=== PATIENT | female | born 1975 | race Caucasian/White ===

== ENCOUNTER 2019-06-24 14:19 | Outpatient (REF) | payer MEDICAID, SELFPAY ==
[2019-06-24 23:36] LABS: ALT 25 U/L (14-59); AST 18 U/L (15-37); Alkaline Phosphatase 102 U/L (46-116); Anion Gap 9.6 mmol/L (3-11); BUN 20 mg/dL (7-18); Bilirubin, Total 0.9 mg/dL (0.2-1.0); CO2 30.4 mmol/L (21.0-32.0); CREATININE 1.27 mg/dL (0.55-1.02); Calcium 10.9 mg/dL (8.5-10.1); Chloride 97 mmol/L (98-107); Glucose 92 mg/dL (74-106); HDL Cholesterol 45 mg/dL (40-60); Potassium 4.1 mmol/L (3.5-5.1); Sodium 137 mmol/L (136-145); Total Protein 8.7 g/dL (6.4-8.2); Triglyceride 186 mg/dL (<150)
[2019-06-24 23:39] LABS: Calculated LDL 520 mg/dL (<100); Cholesterol 602 mg/dL (<200); TSH 126.76 uIU/mL (0.36-3.74)
[2019-06-25 05:29] LABS: Vitamin D 25 Total 8.9 ng/ml (30-100)
== END 2019-06-24 14:39 ==
LOC: NCHCN 14:19
PROVIDERS: PCP Nurse Practitioner Family; Visit Provider Registered Nurse
DX: E78.5 Hyperlipidemia, unspecified (principal); E03.9 Hypothyroidism, unspecified; F32.9 Major depressive disorder, single episode, unspecified; E66.9 Obesity, unspecified
CPT/HCPCS: 80053; 80061; 82306; 84443

== ENCOUNTER 2019-09-08 09:13 | Outpatient (REF) | payer MEDICAID, SELFPAY ==
[2019-09-08 21:21] LABS: Calculated LDL 187 mg/dL (<100); Cholesterol 272 mg/dL (<200); HDL Cholesterol 38 mg/dL (40-60); TSH 12.92 uIU/mL (0.36-3.74); Triglyceride 237 mg/dL (<150)
[2019-09-08 21:40] LABS: FREE T4 0.98 ng/dL (0.76-1.46)
== END 2019-09-08 09:33 ==
LOC: NCHCN 09:13
PROVIDERS: PCP Nurse Practitioner Family; Visit Provider Registered Nurse
DX: E03.9 Hypothyroidism, unspecified (principal); E78.2 Mixed hyperlipidemia
CPT/HCPCS: 80061; 84439; 84443

== ENCOUNTER 2019-11-05 13:44 | Outpatient (REF) | payer MEDICAID, SELFPAY ==
[2019-11-05 21:25] LABS: TSH 0.05 uIU/mL (0.36-3.74)
== END 2019-11-05 14:04 ==
LOC: NCHCN 13:44
PROVIDERS: PCP Nurse Practitioner Family; Visit Provider Registered Nurse
DX: E03.9 Hypothyroidism, unspecified (principal)
CPT/HCPCS: 84443

== ENCOUNTER 2020-01-01 11:04 | Outpatient (REF) | payer MEDICAID, SELFPAY ==
[2020-01-01 20:00] LABS: TSH 0.01 uIU/mL (0.36-3.74)
== END 2020-01-01 11:24 ==
LOC: NCHCN 11:04
PROVIDERS: PCP Registered Nurse; Visit Provider Registered Nurse
DX: E03.9 Hypothyroidism, unspecified (principal); E78.2 Mixed hyperlipidemia; R00.2 Palpitations; J45.40 Moderate persistent asthma, uncomplicated; I10 Essential (primary) hypertension
CPT/HCPCS: 84443

== ENCOUNTER 2020-04-06 19:15 | Outpatient (REF) | payer MEDICAID, SELFPAY ==
[2020-04-06 22:20] LABS: TSH (W/Ref FT4) 0.13 uIU/mL (0.36-3.74)
[2020-04-06 22:39] LABS: FREE T4 1.39 ng/dL (0.76-1.46)
== END 2020-04-06 19:35 ==
LOC: NCHCN 19:15
PROVIDERS: PCP Registered Nurse; Visit Provider Registered Nurse
DX: E03.9 Hypothyroidism, unspecified (principal)
CPT/HCPCS: 84439; 84443

== ENCOUNTER 2020-11-10 10:05 | Outpatient (REF) | payer MEDICAID, SELFPAY ==
[2020-11-10 16:49] LABS: Anion Gap 11.1 mmol/L (3-11); BUN 13 mg/dL (7-18); CO2 27.9 mmol/L (21.0-32.0); CREATININE 0.9 mg/dL (0.55-1.02); Calcium 9.3 mg/dL (8.5-10.1); Calculated LDL 82 mg/dL (<100); Chloride 104 mmol/L (98-107); Cholesterol 150 mg/dL (<200); Glucose 99 mg/dL (74-106); HDL Cholesterol 42 mg/dL (40-60); Potassium 4.1 mmol/L (3.5-5.1); Sodium 143 mmol/L (136-145); Triglyceride 131 mg/dL (<150)
[2020-11-10 16:50] LABS: TSH (W/Ref FT4) 0.01 uIU/mL (0.36-3.74)
[2020-11-10 17:11] LABS: FREE T4 1.66 ng/dL (0.76-1.46)
== END 2020-11-10 10:06 | disposition home or self-care (01) ==
LOC: NCHCN 10:05
PROVIDERS: PCP Registered Nurse; Visit Provider Registered Nurse
DX: I10 Essential (primary) hypertension (principal); E78.2 Mixed hyperlipidemia; E03.9 Hypothyroidism, unspecified
CPT/HCPCS: 80048; 80061; 84439; 84443

== ENCOUNTER 2021-01-12 09:27 | Outpatient (REF) | payer MEDICAID, SELFPAY ==
[2021-01-12 21:30] LABS: TSH (W/Ref FT4) 0.12 uIU/mL (0.36-3.74)
[2021-01-12 21:50] LABS: FREE T4 1.28 ng/dL (0.76-1.46)
== END 2021-01-12 09:28 | disposition home or self-care (01) ==
LOC: NCHCN 09:27
PROVIDERS: PCP Registered Nurse; Visit Provider Registered Nurse
DX: E03.9 Hypothyroidism, unspecified (principal)
CPT/HCPCS: 84439; 84443

== ENCOUNTER 2021-04-25 08:48 | Outpatient (REF) | payer MEDICAID, SELFPAY ==
[2021-04-25 15:13] LABS: TSH 1.44 uIU/mL (0.36-3.74)
== END 2021-04-25 08:49 | disposition home or self-care (01) ==
LOC: NCHCN 08:48
PROVIDERS: PCP Registered Nurse; Visit Provider Registered Nurse
DX: E03.9 Hypothyroidism, unspecified (principal)
CPT/HCPCS: 84443

== ENCOUNTER 2021-09-27 16:01 | Outpatient (REF) | payer MEDICAID, SELFPAY ==
[2021-09-27 17:26] LABS: Hemoglobin A1C 5.8 % (<5.7)
[2021-09-27 17:39] LABS: Anion Gap 13.2 mmol/L (3-11); BUN 25 mg/dL (7-18); CO2 26.8 mmol/L (21.0-32.0); CREATININE 1.3 mg/dL (0.55-1.02); Calcium 9.6 mg/dL (8.5-10.1); Calculated LDL 282 mg/dL (<100); Chloride 99 mmol/L (98-107); Cholesterol 369 mg/dL (<200); Glucose 84 mg/dL (74-106); HDL Cholesterol 46 mg/dL (40-60); Sodium 139 mmol/L (136-145); Triglyceride 206 mg/dL (<150)
== END 2021-09-27 16:02 | disposition home or self-care (01) ==
LOC: NCHCN 16:01
PROVIDERS: PCP Registered Nurse; Visit Provider Registered Nurse
DX: I10 Essential (primary) hypertension (principal); E03.9 Hypothyroidism, unspecified; E78.2 Mixed hyperlipidemia; R73.09 Other abnormal glucose; Z83.3 Family history of diabetes mellitus
CPT/HCPCS: 80048; 80061; 83036; 84439; 84443

== ENCOUNTER 2021-10-13 17:07 | Outpatient (REF) | payer MEDICAID, SELFPAY ==
--- OUTSIDE RECORDS SUMMARY | 2021-10-13 17:09 | XMS_ITS | CCD ---
:1975 Author Care Team Providers Name Role Phone ROCIO VERDUGO Attending Physician Unavailable ROCIO VERDUGO Rounding (Secondary) Physician Unavailab le Vital Signs Unknown or Not Available. Allergies Allergy Code Allergy Type Reaction Status No Known Allergies {Clinical monitoring 0 Drug allergy Active unavailable} Procedures Unknown or Not Available. History of Immunizations Unknown or Not Available. Problems Unknown or Not Available. Results Unknown or Not Available. Active Medications Unknown or Not Available. Medications Administered During Visit Unknown or Not Available. Encounters Encounter Diagnosis Diagnosis Code Start Date Insomnia, unspecified [id number] 07/05/2021 Social History Smoking Status Code Start Date End Date Former smoker [id number] 04/22/1994 04/22/2008 Patient Decision Aids Unknown or Not Available. Discharge Instructions You were admitted to [facility] on 07/05/2021 13:56 with a principal diagnosis of Insomnia, unspecified You were discharged from [facility] on 07/05/2021 13:56 Should you have any questions prior to d ischarge, please contact a member of your healthcare team. If you have left the ho spital and have any questions, please contact your primary care physician. Chief Complaint and Reason For Visit Unknown or Not Available. Function Status Unknown or Not Available. Plan of Care Unknown or Not Available. Referral/Transition of Care Unknown or Not Available.
--- OUTSIDE RECORDS SUMMARY | 2021-10-13 17:10 | XMS_ITS | Encounter Summary ---
:1975 Author Organization [facility] [place] [address] Care Team Providers Name Role Phone Ciarra Noriega APRN Primary Care Provider [phone] Encounter Details Date Type Department Care Team Description 01/24/2017 Telephone Endocrinology at [facility] [place] [address] Social History Tobacco Use Types Packs/Day Years Used Date Never Smoker Sex Assigned at Date Recorded Not on file documented as of this encounter Miscellaneous Notes Telephone Encounter - Katelynn Carrillo LPN - 01/25/2017 9:50 AM EDT Images from the original note were not included. Breana Echeverria?? Female, 41 y.o., 1975 Weight: 78.5 kg (173 lb) Home: PCP: Ciarra Noriega APRN myD-H: Code Exp Next Appt: None ?? Message Received: Today ? Robby Salazar, DO Katelynn Carrillo LPN ? Caller: Unspecified (Yesterday, ??3:55 PM) ? Nataly is not in the office today. I have asked her staff to fax patients most recent TSH as I suspect that is what the inquiry is regarding. ? Previous Messages Telephone Encounter - Katelynn Carrillo LPN - 01/24/2017 3:55 PM EDT Nataly Dahl GROUP DIRECTOR EXPERIENCE at [facility] is asking for a call back regarding labs on this patient [phone] documented in this encounter Plan of Treatment Not on filedocumented as of this encounter Visit Diagnoses Not on filedocumented in this encounter Care Teams Firepot Operator And Tender Relationship Specialty Start Date End Date Ciarra Noriega APRN PCP - General Family Medicine 06/28/16 10/03/[address] [place] [address] documented as of this encounter
--- OUTSIDE RECORDS SUMMARY | 2021-10-13 17:10 | XMS_ITS | Encounter Summary ---
:1975 Author Organization [facility] [place] [address] Care Team Providers Name Role Phone Ciarra Noriega TIME BROKER Primary Care Provider [phone] Reason for Visit Consultation (Routine) - Closed Specialty Diagnoses / Procedures Referred By Contact Refer red To Contact Endocrinology Diagnoses Hypothyroidism-difficulty maintaining appropriate range Ciarra Noriega, [facility] Endocrinology 3b TIME BROKER [address] [address] [place] [address] Referral ID Status Reason Start Date Expiration Date Visits V isits Requested Authorized [id number] Closed Consult, 06/28/2016 06/28/2017 1 [facility] Encounter Details Date Type Department Care Team Description 08/01/2016 Office Visit Endocrinology at [facility] Robby Ken DO [facility] [place] [address] Hypothyroidism, [facility] Karli Juarez MD [facility] [place] [address] [place] [address] Social History Tobacco Use Types Packs/Day Years Used Date Never Smoker Sex Assigned at Date Recorded Not on file documented as of this encounter Last Filed Vital Signs Vital Sign Reading Time Taken Comments Blood Pressure 117/71 08/01/2016 2:57 PM EDT Pulse 89 08/01/2016 2:57 PM EDT Temperature - - Respiratory Rate - - Oxygen Saturation - - Inhaled Oxygen Concentration - - Weight 78.5 kg (173 lb) 08/01/2016 2:57 PM EDT Height 154.9 cm (5' 1) 08/01/2016 2:57 PM EDT Body Mass Index 32.69 08/01/2016 2:57 PM EDT documented in this encounter Patient Instructions Patient InstructionsKarli Juarez MD - 08/01/2016 3:00 PM EDT Will check your thyroid labs today and get back to you with results documented in this encounter Progress Notes Karli Juarez MD - 08/01/2016 3:00 PM EDT Endocrinology Consultation Date of Visit: 08/01/16 Patient: Name: Teresa Alvarez : 1975 Tersea Alvarez was seen in consultation in the Endocrine clinic at the request of Dr. iCarra Noriega, BRIANNA for: hypothyroidism. Patient's previous record as are the lab results are reviewed. HISTORY OF PRESENT ILLNESS: Teresa Alvarez is a very pleasant 40 y.o. yo female who presents for evaluation of hypothyroidism No family history of thyroid problem that patient is aware of. No previous head and neck irradiationand does not take other supplements or medications that can cause low thyroid. Never noticed goiter,neck pain or difficulty swallowing or voice changes. She has had multiple dose adjustments over the pastyear for fluctuating TSH levels as below Recent labs: 06/28/2016 TSH- 74 FT4- 0.66 12/2015 TSH 0.12 08/2015 TSH-31 She reports being on levothyroxine 200 mcg for 6 months and was recently upped to 250 mcg levothyroxine since 1 month. She states she is extremely compliant, having missed only 2 doses. Does not take pill with any othermeds. No celiac or gluten intolerance. Is Lactose intolerant. Diagnosed with HLD and hypothyroid 5 years ago. No FH thyroid disease Fatigue - always Weight gain - 20 lbs unintentional weight gain over 6 mo Intolerance to cold - yes Dry skin - no constipation - no Menstrual irregularities - TH + BSO for DUB and ovarian cysts b/w [id number] Not on HRT. Had psychosis on OCPs after 3 mo Muscle and joint pain - no Sleep disturbances - Trouble sleepinng Forgetfulness - no Globus sensation - no Difficulty swallowing - no Difficulty breathing - no Hoarseness or voice change - No REVIEW OF SYSTEMS: as per HPI, all other systems reviewed and negative Patient Active Problem List Diagnosis ??? Hypothyroidism, acquired, autoimmune ??? Early menopause Social History Social History ??? Marital status: N/A Spouse name: N/A ??? Number of children: N/A ??? Years of education: N/A Social History Main Topics ??? Smoking status: Not on file ??? Smokeless tobacco: Not on file ??? Alcohol use Not on file ??? Drug use: Not on file ??? Sexual activity: Not on file Other Topics Concern ??? Not on file Social History Narrative FH + DM, CAD PHYSICAL EXAM: BP 117/71 Pulse 89 Ht 154.9 cm (5' 1) Wt 78.5 kg (173 lb) BMI 32.69 kg/m2 GENERAL: Well nourished, well hydrated, in no distress, oriented x 3 EYES: no thyroid eye signs, SAHARA, Fundi normal, cornea normal NECK: supple, no palpable nodule or goiter, no bruit, no tenderness, no adenopathies CVS: S1 S2 heard, rhythm regular RS: clear breath sounds bilateral ABD: soft, BS heard, no organomegaly EXTREMITIES: No clubbing, no edema, no cyanosis, normal nails NEURO: normal strength, no tremor, normal reflexes Labs Results for TERESA ALVAREZ ( ) as of 08/02/2016 10:05 Ref. 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 Patient has had rapid reduction in TSH from 74 to 0.31 with a big loading dose of 250 mcg over the past month. Her weight based dosing works out closer to 125 mcg. Would favor reducing from 250 mcg to 175 mcg and repeating her TSH in 8 weeks through her PCP. Patient went through menopause in her early 30's. She is at higher risk of osteoporosis as she couldn't tolerate estrogen replacement therapy. She will need to continue calcium supplements and have herVit D status evaluated by her PCP to determine if she needs supplementation. She may consider f/u with OB to determine if she may need some estrogen replacement and a DEXA scan should be conducted by PCP in the future. I called and updated the patient who verbalized understanding and agreed with the plan PLAN: 1. Medication: Patient will start taking levothyroxine 150 mcg qd on an empty stomach at least 1/2 hbefore breakfast and separate from iron, calcium or multivitamin-multimineral supplement to ensure full absorption of thyroid medication. Patient was advised of proper dosage, how to take the medication properly, precautions, and potential complication of the medication prescribed. Patient will continue all other medications, healthy diet and execise regularly. 2. To eat low fat/controlled carb and healthy diet as well as regular exercise to keep weight down 3. Lab: check lab in 10 weeks for TSH by PCP 4. f/u: with PCP and to please contact is with questions 5. Patient info on hypothyroidism was given and explained in details today We have reviewed our plan outlined above with the patient, and patient verbalized understanding. Allquestions were answered and most of the time was spent on counseling about thyroid conditions, medications adjustment, including pros and cons of starting medication, the diagnostic and therapeutic decisions, and coordination of care. Thank you for allowing me to participate in the care of this very pleasant patient. This consult was discussed with Dr Salazar of Endocrinology Karli Juarez MD Endocrine Fellow [phone] Robby Salazar DO - 08/01/2016 3:00 PM EDT I have seen the patient and reviewed Dr juarez's history and I agree with the details as written. The assessment and plan were formulated in discussion with me and I agree with them as documented. Robby Salazar DO, MS Chapter Relations Administratorsection cutter Section of Endocrinology [facility] documented in this encounter Plan of Treatment Not on filedocumented as of this encounter Procedures Procedure Name Priority Date/Time Associated Diagnosis Comme nts TSH Routine 08/01/2016 3:52 PM Hypothyroidism, Result s for this EDT unspecified type procedure a re in the results section. documented in this encounter Results TSH (08/01/2016 3:52 PM EDT) P athologist Signature TSH 0.31 0.27 - 4.20 SUMANTH PAN mcIU/mL [facility] Specimen Anatomical Collection Method Collection Time Receive d Time (Source) Location / / Volume Laterality Blood specimen 08/01/2016 3:52 PM 017 4:00 (specimen) EDT PM EDT Resulting Agency Comment Spec In Lab Robby Salazar DO CHEMISTRY ORDERABLES Performing Organization Address City/State/ZIP Code Phon e Number [place] [phone] documented in this encounter Visit Diagnoses Diagnosis Hypothyroidism, unspecified type documented in this encounter Care Teams Matching Machine Operator Relationship Specialty Start Date End Date Ciarra Noriega APRN PCP - General Family Medicine 06/28/16 10/03/[address] [place] [address] documented as of this encounter
--- OUTSIDE RECORDS SUMMARY | 2021-10-13 17:10 | XMS_ITS | Encounter Summary ---
:1975 Author Organization [facility] Address [address] [place] [address] Care Team Providers Name Role Phone Ciarra Noriega SEMICONDUCTORS WAFER BREAKER Primary Care Provider [phone] Encounter Details Date Type Department Care Team Description 03/30/2020 Lab Requisition [facility] Outr Resulting Lab, Pathology & Laboratory Provider [facility] [address] [place] [address] Social History Tobacco Use Types Packs/Day Years Used Date Former Smoker Smokeless Tobacco: Never Used Alcohol Use Standard Drinks/Week Comments No 0 (1 standard drink = 0.6 oz pure alcoho l) Sex Assigned at Date Recorded Not on file documented as of this encounter Plan of Treatment Not on filedocumented as of this encounter Procedures Procedure Name Priority Date/Time Associated Diagnosis Comme nts IGE Routine 03/30/2020 11:09 EST Results for this procedure are i n the results section . documented in this encounter Results IGE (03/30/2020 11:09 EST) Pathologist Sig nature IgE 11 <158 IU/mL [facility] Specimen Blood - Venous blood (substance) Performing Organization Address City/State/ZIP Code Phon e Number [facility] [address] [place] [address] SERVICES documented in this encounter Visit Diagnoses Not on filedocumented in this encounter Care Teams Preforming Machine Operator Relationship Specialty Start Date End Date Ciarra Noriega, SEMICONDUCTORS WAFER BREAKER PCP - General 03/28/15 documented as of this encounter
--- OUTSIDE RECORDS SUMMARY | 2021-10-13 17:10 | XMS_ITS | Encounter Summary ---
:1975 Author Organization [facility] Address [address] [place] [address] Care Team Providers Name Role Phone Ciarra Noriega NP Primary Care Provider [phone] Encounter Details Date Type Department Care Team Description 03/30/2015 Abstract [facility] Charles Loja MD TREVOR (acute kidney Nephrology - S 1 [facility] injury) ( [facility]) [facility] (Primary Dx) [address] [facility] [address] [place] [address] [place] [phone] (Wo rk) Social History Tobacco Use Types Packs/Day Years Used Date Former Smoker Smokeless Tobacco: Never Used Alcohol Use Standard Drinks/Week Comments No 0 (1 standard drink = 0.6 oz pure alcoho l) Sex Assigned at Date Recorded Not on file documented as of this encounter Plan of Treatment Not on filedocumented as of this encounter Procedures Procedure Name Priority Date/Time Associated Diagnosis Comme nts URINALYSIS WITH Routine 03/29/2015 TREVOR (acute kidney Results for this MICROSCOPIC IF POSITIVE injury) ([facility]) procedure are in the results section . documented in this encounter Results URINALYSIS WITH REFLEX MICROSCOPIC (03/29/2015) Pathologist Sig nature Color UA, External yellow [facility] Clarity UA, External clear [facility] Glucose UA, External neg [facility] Bilirubin UA, External neg [facility] Ketones UA, External neg [facility] Specific [place] UA, 1.010 [facility] Blood UA, External trace [facility] pH UA, External 6.5 [facility] Protein UA, External neg [facility] Urobilinogen UA, External 0.2 [facility] Nitrite UA, External neg [facility] Leukocyte Esterase UA, neg [facility] Specimen Urine (substance) Performing Organization Address City/State/ZIP Code Phon e Number [facility] [address] LAB documented in this encounter Visit Diagnoses Diagnosis TREVOR (acute kidney injury) ([facility]) ([facility] ) - Primary Acute kidney failure, unspecified documented in this encounter Care Teams Mini Lab Operator Relationship Specialty Start Date End Date Ciarra Noriega ENTRY LEVEL SOFTWARE ENGINEER PCP - General 03/28/15 documented as of this encounter
--- OUTSIDE RECORDS SUMMARY | 2021-10-13 17:10 | XMS_ITS | Encounter Summary ---
:1975 Author Organization [facility] [place] [address] Care Team Providers Name Role Phone Ciarra Noriega APRN Primary Care Provider [phone] Reason for Visit Reason Onset Date Comments Medication Refill 09/28/2016 Encounter Details Date Type Department Care Team Description 09/28/2016 Refill Endocrinology at [facility] Karli Scruggs MD Hypothyroidism, One [facility] [place] [address] ENDOCRINOLOGY DE PT [place], [place] [address] (Wo rk) Social History Tobacco Use Types Packs/Day Years Used Date Never Smoker Sex Assigned at Date Recorded Not on file documented as of this encounter Miscellaneous Notes Telephone Encounter - Katelynn Carrillo LPN - 09/28/2016 9:34 AM EDT Balta lazcano in [place] Medicaid is requiring a 90 day Rx of Lt4 documented in this encounter Plan of Treatment Not on filedocumented as of this encounter Visit Diagnoses Diagnosis Hypothyroidism, unspecified type documented in this encounter Care Teams Canine Deputy Relationship Specialty Start Date End Date Ciarra Noriega APRN PCP - General Family Medicine 06/28/16 10/03/17 [address] [place] [address] documented as of this encounter
--- OUTSIDE RECORDS SUMMARY | 2021-10-13 17:10 | XMS_ITS | Encounter Summary ---
:1975 Author Organization [facility] [place] [address] Care Team Providers Name Role Phone Nataly Dahl BRIANNA Primary Care Provider [phone] Reason for Visit Reason Comments Hypothyroidism Encounter Details Date Type Department Care Team Description 10/04/2017 Office Visit Endocrinology at [facility] Chika Altman, Hypothyroidism, [facility] MD Ye[place] [address] CENTER [phone] ENDOCRINOLOGY DEPT [place] [id number] Social History Tobacco Use Types Packs/Day Years Used Date Former Smoker Smokeless Tobacco: Never Used Comments: quit 2012 Sex Assigned at Date Recorded Not on file documented as of this encounter Last Filed Vital Signs Vital Sign Reading Time Taken Comments Blood Pressure 145/94 10/04/2017 1:42 PM EDT Pulse 75 10/04/2017 1:42 PM EDT Temperature - - Respiratory Rate - - Oxygen Saturation - - Inhaled Oxygen Concentration - - Weight 85.9 kg (189 lb 6.4 oz) 10/04/2017 1:42 PM EDT Height 154.9 cm (5' 1) 10/04/2017 1:42 PM EDT Body Mass Index 35.79 10/04/2017 1:42 PM EDT documented in this encounter Progress Notes Yeimi Altman MD - 10/04/2017 2:00 PM EDT Endocrinology Clinic Follow-up Visit Reason for Visit: Swapnil's hypothyroidism, on LT4. HISTORY OF PRESENT ILLNESS: Ms. Breana Echeverria is a 41 y.o. year old lady with history significant for Swapnil's hypothyroidism for which she was seen about 1 year ago (July 2016) by Dr Salazar and Dr. Loza. Her TSH had been as high as 72 and at the time of her consultation, had responded down to a TSH 0.31 after about 4 weeks of LT4 250 mcg daily, so her dose was decreased to 175 mcg daily which was closer to her estimatedweight based dose, and she was advised to then return to the care of her PCP. She reports today that she has not been taking any LT4 since about December 2016 because she got frustrated with the dosing. She says she's been feeling all right off of it.the only thing that has bothered her has been occasional lower leg swelling L>R that when it gets bad (not today), she is unable to put her shoe on and hurts to walk. Today is a good day though. She's also had some hair thinning, but nothing too concerning for her. Bowel movements have been regular, no loose stools. She is a chronic nail biter, but hasn't noticed her nails being more brittle. She has gained about 16 lbs since her last visit 15 months ago, isn't particularly concerned about this however. PAST MEDICAL HISTORY: Patient Active Problem List Diagnosis Date Noted ??? Hypothyroidism, acquired, autoimmune 08/02/2016 ??? Early menopause 08/02/2016 MEDICATIONS: Medications 10/04/17 1349 Medication Sig Taking? pantoprazole (PROTONIX) 40 mg Tablet, Delayed Release (E.C.) Take 40 mg by mouth daily. Yes ADVAIR HFA 230-21 mcg/actuation HFA Aerosol Inhaler Inhale into the lungs 2 times daily. Yes atorvastatin (LIPITOR) 10 mg Tablet Take 10 mg by mouth daily. Yes loratadine (CLARITIN) 10 mg Tablet Yes FLUoxetine (PROZAC) 10 mg Capsule daily. Yes ALLERGIES: No Known Allergies SOCIAL HISTORY: History Smoking Status ??? Former Smoker Smokeless Tobacco ??? Never Used Comment: quit 2012 FAMILY HISTORY: No family history on file. REVIEW OF SYSTEMS: All 12 systems reviewed and negative except as noted per HPI. PHYSICAL EXAM: Vitals Office Visit from 10/04/2017 in Endocrinology at [facility] Weight 85.9 kg (189 lb 6.4 oz) Height 154.9 cm (5' 1) BSA (Calculated - sq m) 1.92 sq meters BMI (Calculated) 35.78 Heart Rate 75 BP (!) 145/94 Gen: NAD, AAOx3, speaking full sentences, calm very pleasant cheerful demeanor, moderately obese habitus Skin: warm and dry, thinning hair at crown of head Eyes: PERRL, EOMI, anicteric sclerae without injection, no proptosis or lid lag ENT: moist oral mucosa Neck: mild thyromegaly, no lymphadenopathy Pulm: CTAB, no stridor Cardiac: reg s1s2, no m/r/g MSK: 5/5 strength in all muscle groups of the upper and lower extremities, no LE edema Neuro: 2+ patellar DTRs, no clonus, no delay of the relaxation phase, no tremor. ASSESSMENT: 41 yo F who was evaluated in our clinic about 15 months ago for hypothyroidism, but self-discontinued her thyroid hormone replacement about 8-9 months ago. She has had minimal symptoms off of the LT4 so I wonder if her hypothyroidism may have been temporary previously (possibly from a silent thyroiditis). She has had a few nonspecific symptoms which have not been particularly bothersome to her - hair thinning, 16 lb weight gain, dry skin - but could potentially represent hypothyroidism (among other things). I will check her TFTs today here at [facility] to see if she needs to go back on LT4. She [address] from here, so if we need to restart LT4 and make dose adjustments, I provided her with a standing external order for TSH levels that she can have done closer to home. Once she is on a stable dose (if LT4 is needed), she can continue following with her PCP in regards to her thyroid hormone status. I asked her to notify me when she has her blood draw close to home, so we canobtain results in an expedited manner. PLAN: --TFTs today --if hypothyroid, will restart LT4 and recheck TSH in 2 months to reassess dose. --if euthyroid, she can stay off of LT4 and just follow with her PCP for yearly TSH checks YEIMI ALTMAN MD Monitoring Techtechnical delivery manager Section of Endocrinology [facility] documented in this encounter Plan of Treatment Not on filedocumented as of this encounter Procedures Procedure Name Priority Date/Time Associated Diagnosis Comme nts T3 TOTAL Routine 10/04/2017 2:40 PM Hypothyroidism, Result s for this EDT unspecified type procedure a re in the results section. TSH Routine 10/04/2017 2:40 PM Hypothyroidism, Result s for this EDT unspecified type procedure a re in the results section. T4, FREE Routine 10/04/2017 2:40 PM Hypothyroidism, Result s for this EDT unspecified type procedure a re in the results section. documented in this encounter Results (ABNORMAL) T3 Total (10/04/2017 2:40 PM EDT) athologist Signature T3, Total 45 (L) 75 - 170 [facility] ng/dL [facility] Specimen Anatomical Collection Method Collection Time Receive d Time (Source) Location / / Volume Laterality Blood specimen 10/04/2017 2:40 PM 018 2:57 (specimen) EDT PM EDT Resulting Agency Comment Spec In Lab Yeimi Altman MD CHEMISTRY ORDERABLES Performing Organization Address City/State/[place] [address] (ABNORMAL) T4, free (10/04/2017 2:40 PM EDT) athologist Signature Free T4 0.28 (L) 0.93 - 1.70 [facility] ng/dL [facility] Specimen Anatomical Collection Method Collection Time Receive d Time (Source) Location / / Volume Laterality Blood specimen 10/04/2017 2:40 PM 018 2:57 (specimen) EDT PM EDT Resulting Agency Comment Spec In Lab Yeimi Altman MD CHEMISTRY ORDERABLES Performing Organization Address City/[facility]/[place] [address] (ABNORMAL) TSH (10/04/2017 2:40 PM EDT) P athologist Signature TSH 157.50 (H) 0.27 - [facility] [address] [facility] mlU/ML [facility] Specimen Anatomical Collection Method Collection Time Receive d Time (Source) Location / / Volume Laterality Blood specimen 10/04/2017 2:40 PM 018 2:57 (specimen) EDT PM EDT Resulting Agency Comment Spec In Lab Yeimi Altman MD CHEMISTRY ORDERABLES Performing Organization Address City/State/[place] [address] documented in this encounter Visit Diagnoses Diagnosis Hypothyroidism, unspecified type documented in this encounter Care Teams Manager Leadership Development Relationship Specialty Start Date End Date Nataly Dahl APRN PCP - General Family Medicine 10/04/17 [address] [place] [address] documented as of this encounter
--- OUTSIDE RECORDS SUMMARY | 2021-10-13 17:10 | XMS_ITS | Encounter Summary ---
:1975 Author Organization [facility] Address [address] [place] [address] Care Team Providers Name Role Phone Ciarra Noriega CLINICAL TRAINING SPECIALIST Primary Care Provider [phone] Reason for Visit Reason Onset Date Comments Referral Request 09/05/2015 Encounter Details Date Type Department Care Team Description 09/05/2015 Telephone [facility] Ciarra Noriega, Referral Request Surgical Oncology - [facility] [address] [place] [address] [place], [place] [id number] [phone] Social History Tobacco Use Types Packs/Day Years Used Date Former Smoker Smokeless Tobacco: Never Used Alcohol Use Standard Drinks/Week Comments No 0 (1 standard drink = 0.6 oz pure alcoho l) Sex Assigned at Date Recorded Not on file documented as of this encounter Miscellaneous Notes Telephone Encounter - Padma Colon - 09/05/2015 1245 EDT Received referral to the [facility] from patient's PCP Ciarra Noriega on 09/05/15 for genetic counseling d/t family history of breast cancer in patient's mother and maternal aunt. Faxed to [facility] primary care coordinator. Copy of outsiderecords sent to scan. documented in this encounter Plan of Treatment Not on filedocumented as of this encounter Visit Diagnoses Not on filedocumented in this encounter Care Teams Provider Relations Manager Relationship Specialty Start Date End Date Ciarra Noriega CLINICAL TRAINING SPECIALIST PCP - General 03/28/15 documented as of this encounter
--- OUTSIDE RECORDS SUMMARY | 2021-10-13 17:10 | XMS_ITS | Encounter Summary ---
:1975 Author Organization [facility] Address [address] [place] [address] Care Team Providers Name Role Phone Ciarra Noriega NP Primary Care Provider [phone] Reason for Referral Consult (3 - 10 Business Days) - Canceled Specialty Diagnoses / Procedures Referred By Contact Refer red To Contact Urology Diagnoses TREVOR (acute kidney injury) ([facility] ([facility]) Tommy Loja MD [address] [facility], [address] [place] [address] Referral ID Status Reason Start Expiration Visits Visits Date Date Requested Authorized [id number] Canceled Specialty 1 1 Services 5 Required Question Answer Reason for Request: Right flank pain. Pls evalua te for urinary obstruction. Reason for Visit Reason Onset Date Comments Appointment Related 04/06/2015 Results 04/06/2015 Encounter Details Date Type Department Care Team Description 04/06/2015 Telephone [facility] Charles Loja MD Appointment Related; Nephrology - S 1 [facility] 1 [facility], [address] [place], [place] [id number] [place] [address] [phone] (Wo rk) Social History Tobacco Use Types Packs/Day Years Used Date Former Smoker Smokeless Tobacco: Never Used Alcohol Use Standard Drinks/Week Comments No 0 (1 standard drink = 0.6 oz pure alcoho l) Sex Assigned at Date Recorded Not on file documented as of this encounter Miscellaneous Notes Telephone Encounter - Monserrat Gatica RN - 04/07/2015 1502 EST Note to front office secretary team to cancel urology consult and follow up appt with Dr. Loja, neither are needed. done elephone Encounter - Tommy Loja MD - 04/07/2015 1350 EST Discussed with PCP Ciarra Noriega. Pls cancel Urology input as no evidence of renal cause for kidney pain on imaging. Pt to continue f/u with PCP team. Pls cancel f/u visit. elephone Encounter - Monserrat Gatica RN - 04/07/[address] Noriega: previous notes sent to PCP. PCP states no pain meds will be given from her office. Last labs on 03/29/[address] Loja to review for any changes in treatment plan prior to pt's April appt. pending elephone Encounter - Rosalba Fortune - 04/07/2015 1154 EST Ciarra from [facility] is returning the call. elephone Encounter - Monserrat Gatica RN - 04/06/2015 1151 EST Spoke with pt: note from Dr. Loja given. Pt states that right back flank pain continues 7+ on tylenol. Pt directed to PCP for additional paincontrol. Pt aware that we will get back to her. pending elephone Encounter - Tommy Loja MD - 04/06/2015 1140 EST Pt seen for right flank pain. Pls let pt know that I have recd the images from [facility] - theradiologists there are reviewing the images of her kidney (on CT scan dated Nov 2014) and will be sending me a complete report. Once I have that, I will then make further recommendations. documented in this encounter Plan of Treatment Scheduled Referrals Name Type Priority Associated Diagnoses Order S chedule AMB CONS/FOLLOW UP Outpatient Referral Routine TREVOR (acute kidn ey Ordered: UROLOGY injury) ([facility]) 04/06/2015 documented as of this encounter Visit Diagnoses Diagnosis TREVOR (acute kidney injury) ([facility]) ([facility] ) - Primary Acute kidney failure, unspecified documented in this encounter Care Teams Restaurant Cook Relationship Specialty Start Date End Date Ciarra Noriega NP PCP - General 03/28/15 documented as of this encounter
--- OUTSIDE RECORDS SUMMARY | 2021-10-13 17:10 | XMS_ITS | Encounter Summary ---
:1975 Author Organization [facility] [place] [address] [place] [address] Care Team Providers Name Role Phone Nataly Dahl APRN Primary Care Provider Encounter Details Date Type Department Care Team Description 03/15/2020 Orders Only Pulmonology at [facility] Amrik Padilla VALENTIN (dyspnea on exertion); [facility] MD Wade Hypersensitivity pneumonitis; Drive [address] [facility] Asthma, chronic, moderate pe rsistent, uncomplicated [facility] [phone] Pulmonary [phone] [place] [address] Social History Tobacco Use Types Packs/Day Years Used Date Former Smoker Smokeless Tobacco: Never Used Comments: quit 2012 Sex Assigned at Date Recorded Not on file documented as of this encounter Plan of Treatment Not on filedocumented as of this encounter Visit Diagnoses Diagnosis VALENTIN (dyspnea on exertion) Other dyspnea and respiratory abnormalit y Hypersensitivity pneumonitis Unspecified allergic alveolitis and pneu monitis Asthma, chronic, moderate persistent, un complicated documented in this encounter Care Teams Material Attendant Relationship Specialty Start Date End Date Nataly Dahl APRN PCP - General Family Medicine 10/04/17 [address] [place] [address] documented as of this encounter
--- OUTSIDE RECORDS SUMMARY | 2021-10-13 17:10 | XMS_ITS | Encounter Summary ---
:1975 Author Organization [place] [address] Care Team Providers Name Role Phone Nataly Dahl APRN Primary Care Provider [phone] Encounter Details Date Type Department Care Team Description 10/04/2017 Orders Only Endocrinology at [facility] Yeimi Kerns MD [facility] [place] [address] ENDOCRINOLOGY DEPT [phone] [place], [place] [address] (Wo rk) Social History Tobacco Use Types Packs/Day Years Used Date Former Smoker Smokeless Tobacco: Never Used Comments: quit 2012 Sex Assigned at Date Recorded Not on file documented as of this encounter Plan of Treatment Not on filedocumented as of this encounter Visit Diagnoses Not on filedocumented in this encounter Care Teams Electrician Office Relationship Specialty Start Date End Date Nataly Dahl APRN PCP - General Family Medicine 10/04/17 [address] [place] [address] documented as of this encounter
--- OUTSIDE RECORDS SUMMARY | 2021-10-13 17:10 | XMS_ITS | Encounter Summary ---
:1975 Author Organization [facility] [place] [address] Care Team Providers Name Role Phone Ciarra Noriega APRN Primary Care Provider [phone] Encounter Details Date Type Department Care Team Description 03/27/2017 Telephone Endocrinology at [facility] [place] [address] Social History Tobacco Use Types Packs/Day Years Used Date Never Smoker Sex Assigned at Date Recorded Not on file documented as of this encounter Miscellaneous Notes Telephone Encounter - Katelynn Carrillo LPN - 03/27/2017 4:32 PM EST Results received and were forward to Dr Salazar. Telephone Encounter - Katelynn Carrillo LPN - 03/27/2017 4:14 PM EST Images from the original note were not included. Breana Echeverria?? Female, 41 y.o., 1975 Weight: 78.5 kg (173 lb) Home: PCP: Ciarra Noriega APRN myD-H: Code Exp Next Appt: None ?? Message Received: Today ? Robby Salazar, DO Katelynn Carrillo LPN ? Can you contact PCP office and see if they have repeated TSH and if her levels have improved? If not she should be scheduled for follow up. Thanks Called office of Ciarra Noriega was told she retired. Patient is seeing Nataly Dahl. Per Diandra last TSH 11/05/16 results to be faxed. documented in this encounter Plan of Treatment Not on filedocumented as of this encounter Visit Diagnoses Not on filedocumented in this encounter Care Teams Environmental Health Technician Relationship Specialty Start Date End Date Ciarra Noriega APRN PCP - General Family Medicine 06/28/16 10/03/17 [address] [place] [address] documented as of this encounter
--- OUTSIDE RECORDS SUMMARY | 2021-10-13 17:10 | XMS_ITS | Encounter Summary ---
:1975 [place] [address] Care Team Providers Name Role Phone Nataly Dahl BRIANNA Primary Care Provider [phone] Encounter Details Date Type Department Care Team Description 10/08/2017 Telephone Endocrinology at [facility] Chika Benson [facility] [place] [address] Social History Tobacco Use Types Packs/Day Years Used Date Former Smoker Smokeless Tobacco: Never Used Comments: quit 2012 Sex Assigned at Date Recorded Not on file documented as of this encounter Miscellaneous Notes Telephone Encounter - Sonia Benson RN - 10/21/2017 2:26 PM EDT Mailed message to patient on 10/21/17. Telephone Encounter - Sonia Benson RN - 10/08/2017 9:52 AM EDT Message ?? Hi Sonia Waldron, may you let Breana know that her thyroid levels came back showing she is very hypothyroid, so she definitely needs to resume her levothyroxine thyroid medication. (She took herself off of it back in December and has been off for the past 9 months!). ? I will prescribe a dose of levothyroxine 137 mcg daily, and I want her to go for a blood draw in about 2 months, close to home with the lab slip I gave her today for the standing TSH level to see ifher dose needs to be adjusted. Please let her know that this is just a starting dose, and it is likely it may need to be adjusted a few times before we land on a good dose for her. She lives 2 [place] away so we planned to go about this remotely. ? Please explain to her that she should space the levothyroxine by at least 30 min prior to food, and at least 4 hours from calcium, magnesium, multivitamins, iron, and antacids. ? Thanks! ? ----- Message ----- ? From: Lc, Lab In [facility] ? Sent: 10/04/2017 ?? 4:59 PM ? To: Yeimi Altman MD [facility]. documented in this encounter Plan of Treatment Not on filedocumented as of this encounter Visit Diagnoses Not on filedocumented in this encounter Care Teams Appeals Officer Relationship Specialty Start Date End Date Nataly Dahl APRN PCP - General Family Medicine 10/04/17 [address] [place] [address] documented as of this encounter
--- OUTSIDE RECORDS SUMMARY | 2021-10-13 17:10 | XMS_ITS | Clinical Summary ---
:1975 Author Organization [facility] Address [address] [place] [address] Care Team Providers Name Role Phone Ciarra Noriega NP Primary Care Provider [phone] Allergies No known active allergies Medications Medication Sig Dispensed Refills Start Date End Date Status pantoprazole (PROTONIX) Take 40 mg by 0 Active 20 mg tablet mouth daily. loratadine (CLARITIN) Take 10 mg by 0 Active 10 mg tablet mouth daily albuterol 90 Inhale 2 Puffs as 0 Active mcg/actuation inhaler directed every 4 hours as needed for Wheezing fluticasone Inhale 2 Puffs as 0 Active propion-salmeteroL directed 2 times (ADVAIR HFA) 230-21 daily. mcg/actuation inhaler CALCIUM CARBONATE ORAL Take 600 mg by 0 Active mouth daily. Omeprazole 20 mg Take by mouth. 0 Active tablet,delayed release (DR/EC) cholecalciferol, Take 1,000 Units 0 Active Vitamin D3, 1,000 unit by mouth daily. tablet levothyroxine Take 150 mcg by 0 Active (SYNTHROID) 150 mcg mouth daily. tablet atorvastatin (LIPITOR) Take 80 mg by 0 Active 40 mg tablet mouth daily. atorvastatin (LIPITOR) TK 1 T PO D HS 0 09/20/2019 Active 80 mg tablet levothyroxine TK 1 T PO D 0 09/10/2019 Act jose armando (SYNTHROID) 175 mcg tablet lisinopriL-hydrochlorot TK 1 T PO QD 0 10/20/2019 Active hiazide (ZESTORETIC) 20-25 mg per tablet ezetimibe (ZETIA) 10 mg TK 1 T PO QD 0 09/23/2019 Active tablet Active Problems Problem Noted Date Hypothyroidism 09/03/2019 Dysphagia 09/03/2019 Hyperlipidemia 09/03/2019 Depression 09/03/2019 Headache 09/03/2019 Obesity 09/03/2019 Chronic back pain 09/03/2019 GERD (gastroesophageal reflux disease) 09/03/2019 Asthma 09/03/2019 Visual field defect 02/27/2012 Glaucoma suspect 02/27/2012 Family History Medical History Relation Name Comments Diabetes Brother Glaucoma Father Diabetes Mother Relation Name Status Comments Brother Alive Father Maternal Grandfather Maternal Grandmother Mother Paternal Grandfather Paternal Grandmother Social History Tobacco Use Types Packs/Day Years Used Date Former Smoker Smokeless Tobacco: Never Used Alcohol Use Standard Drinks/Week Comments No 0 (1 standard drink = 0.6 oz pure alcoho l) Sex Assigned at Date Recorded Not on file Last Filed Vital Signs Vital Sign Reading Time Taken Comments Blood Pressure 126/82 04/05/2015 0839 EST pt seen 03/29 cvh Pulse 82 04/05/2015 0839 EST Temperature - - Respiratory Rate - - Oxygen Saturation - - Inhaled Oxygen Concentration - - Weight 80.3 kg (177 lb) 04/05/2015 0839 EST Height - - Body Mass Index - - Plan of Treatment Health Maintenance Due Date Last Done Comments Asthma Action Plan 1975 Lung Function Test (Spirometry) 1975 COVID-19 Vaccine (1) 1985 Insurance Payer Benefit Plan Subscriber ID Effective Phone Address Typ e / Group Dates MEDICAID ACO MEDICAID ACO [id number] 2019-Pres [phone] [address] [place] [address] [facility] [place] [address] Breana Echeverria Personal/Family Self 1975 [address] [id number] Breana Echeverria Personal/Family Self 1975 [address] [place] [address] [id number] Breana Echeverria Personal/Family Self 1975 [address] [place] [address]) [place] [id number] Breana Echeverria Personal/Family Self 1975 [address] [place] [address]) [place] [address]Breana Blood Personal/Family Self 1975 [address] [place] [address] ([address]) [place] [id number] Blood Personal/Family Self 1975 [address] [place] [address] ([place]) [place] [id number] Blood Personal/Family Self 1975 [address] [place] [address] ([place]) [place] [id number] Advance Directives For more information, please contact: [phone] Documents on File Type Date Recorded Patient Equipment Monitor Phototypesetting Explanati on Advance Directives and Living Will Power of Financial Wellness Coach Care Teams Door Trimmer Relationship Specialty Start Date End Date Ciarra Noriega NP PCP - General 03/28/15
--- OUTSIDE RECORDS SUMMARY | 2021-10-13 17:10 | XMS_ITS | Encounter Summary ---
:1975 Author Organization [facility] Address [address] [place] [address] Care Team Providers Name Role Phone Ciarra Noriega NP Primary Care Provider [phone] Encounter Details Date Type Department Care Team Description 03/30/2015 Abstract [facility] Charles Loja MD TREVOR (acute kidney Nephrology - S 1 [facility] injury) ( [facility]) [facility] (Primary Dx) 1 [facility], Level 2 [place] [address] [place] [phone] (Wo rk) Social History Tobacco Use [...] Name Priority Date/Time Associated Diagnosis Comme nts NEPHROLOGY PROFILE Routine 03/29/2015 TREVOR (acute kidney Resu lts for this (INCLUDES BUN, injury) ([facility]) procedur e are in the CREATININE, CALCULATED resul ts section. GFR, ELECTROLYTES, CALCIUM, PHOSPHORUS, ALBUMIN) URINE Routine 03/29/2015 TREVOR (acute kidney Results fo r this QSRUAOR-UI-HCIORZUWDZ injury) ([facility]) p rocedure are in the RATIO (ACR) results section . documented in this encounter Results ALBUMIN, URINE (03/29/2015) Pathologist Sig nature Microalb ug/mg Crea, 38.0 [facility] External CENTER LAB Microalb mg/dl, External 1.91 [facility] Creatinine, Random U 49.50 [facility] (UCRR), [facility] CENTER LAB Specimen Urine (substance) Performing Organization Address City/[facility] Code Phon e Number [facility] [address] LAB NEPHROLOGY PROFILE (INCLUDES BUN, CREATININE, CALCULATED GFR, ELECTROLYTES, CALCIUM, PHOSPHORUS, ALBUMIN) (03/29/2015) Pathologist Sig nature Phosphorus, External 3.6 [facility] Albumin, External 4.6 [facility] BUN, External 18 [facility] Chloride, External 101 [facility] Creatinine, External 1.13 [facility] Potassium, External 4.0 [facility] GFR, Calculated, 53 [facility]ENTER LAB Calculated Calcium, [facility] Calcium, External 9.7 [facility] Sodium, External 139 [facility] CO2, External 29 [facility] Specimen Blood specimen (specimen) Performing Organization Address [facility] Phon e Number [facility] [address] LAB documented in this encounter Visit Diagnoses Diagnosis TREVOR (acute kidney injury) ([facility]) ([facility] ) - Primary Acute kidney failure, unspecified documented in this encounter Care Teams Change Management Relationship Specialty Start Date End Date Ciarra Noriega NP PCP - General 03/28/15 documented as of this encounter
--- OUTSIDE RECORDS SUMMARY | 2021-10-13 17:10 | XMS_ITS | CCD ---
:1975 Author Care Team Providers Name Role Phone SANTY YUN Attending Physician Unavailable SANTY YUN Rounding (Secondary) Physician Unavailab le Vital Signs Unknown or Not Available. Allergies Allergy Code Allergy Type Reaction Status No Known Allergies {Clinical monitoring 0 Drug allergy Active unavailable} Procedures Unknown or Not Available. History of Immunizations Unknown or Not Available. Problems Unknown or Not Available. Results LIPID PANEL* - Collect Date/Time: 2021 15:04 Test Name Code Test Result Test Units Test Ref Range CHOLESTEROL 2093-3 167 mg/dL L=0 H=200 TRIGLYCERIDES 2571-8 176 mg/dL L=45 H=191 HDL 2085-9 48 mg/dL L=34 H=88 non-HDL-C 20848-7 119 mg/dL L=0 H=160 LDL (CALC) 10611-6 84 mg/dL L=0 H=130 % HDL 28.7 % Chol/HDL Ratio 9830-1 3.5 L=0.0 H=4.4 CHD Relative Risk 0.8 x Avg L=0.0 H=1. 0 LDL/HDL Ratio 60173-3 1.8 L=0.0 H=3.2 CHD Relative Risk. 0.6 x Avg L=0.0 H=1 .0 FASTING STATUS: NOT KNOWN N/A Active Medications Unknown or Not Available. Medications Administered During Visit Unknown or Not Available. Encounters Encounter Diagnosis Diagnosis Code Start Date Hyperlipidemia [id number] 10/13/2021 Social History Smoking Status Code Start Date End Date Former smoker [id number] 04/22/1994 04/22/2008 Patient Decision Aids Unknown or Not Available. Discharge Instructions You were admitted to [facility] on 10/13/2021 14:58 with a principal diagnosis of Other hyperlipidemia You had the following tests done: LIPID PANEL* You were discharged from [facility] on 10/13/2021 00:00 Should you have any questions prior to [...]
--- OUTSIDE RECORDS SUMMARY | 2021-10-13 17:11 | XMS_ITS | Encounter Summary ---
:1975 Author Organization [facility] Address [address] [place] [address] Care Team Providers Name Role Phone Betty Mo Primary Care Provider Encounter Details Date Type Department Care Team Description 03/23/2012 Hospital Encounter [facility] [place], [facility] 111 [facility] [address] [place], [place] [address] [place] [address] Pavilion, Level 5 [place] [address] (Wo rk) Social History Tobacco Use Types Packs/Day Years Used Date Former Smoker Smokeless Tobacco: Never Used Alcohol Use Standard Drinks/Week Comments No 0 (1 standard drink = 0.6 oz pure alcoho l) Sex Assigned at Date Recorded Not on file documented as of this encounter Medications at Time of Discharge Medication Sig Dispensed Refills Start Date End Date pantoprazole (PROTONIX) 20 Take 40 mg by mouth 0 mg tablet daily. documented as of this encounter Discharge Disposition Disposition Code Departure Means Destination Auto Discharge Home documented in this encounter Plan of Treatment Not on filedocumented as of this encounter Visit Diagnoses Not on filedocumented in this encounter Care Teams Elastic Assembler Relationship Specialty Start Date End Date Betty Mo FNP PCP - General 03/20/12 02/28/15 [address] [place] [phone] documented as of this encounter
--- OUTSIDE RECORDS SUMMARY | 2021-10-13 17:11 | XMS_ITS | Encounter Summary ---
:1975 Author Organization [facility] Address [address] [place] [address] Care Team Providers Name Role Phone Betty Mo Primary Care Provider Encounter Details Date Type Department Care Team Description 03/03/2014 Hospital Encounter [facility] - Unknown, Rockyi rajiv, [facility] [phone] [place] [address] (Work) [place] [address] Social History Tobacco Use Types Packs/Day Years [...] Discharge Disposition Disposition Code Departure Means Destination Home or Self Long Term documented in this encounter Plan of Treatment Pending Results Name Type Priority Associated Diagnoses Date/Ti me OUTSIDE IMAGES - CT BODY Imaging 12/2014 5:28 EST OUTSIDE IMAGES - CT BODY Imaging 12/2014 5:28 EST Scheduled Orders Name Type Priority Associated Diagnoses Order S chedule OUTSIDE IMAGES - CT Imaging One Time for 1 BODY Occurrences sta rting 03/30/2015 unti l 03/30/2015 OUTSIDE IMAGES - CT Imaging One Time for 1 BODY Occurrences sta rting 03/30/2015 unti l 03/30/2015 documented as of this encounter Visit Diagnoses Not on filedocumented in this encounter Care Teams Helmet Coverer Relationship Specialty Start Date End Date Betty Mo FNP PCP - General 03/20/12 02/28/15 [address] [place] [address] documented as of this encounter
--- OUTSIDE RECORDS SUMMARY | 2021-10-13 17:11 | XMS_ITS | Encounter Summary ---
:1975 Author Organization [facility] Address [address] [place] [address] Care Team Providers Name Role Phone Betty Mo TREE PULLER Primary Care Provider Cassandra Riley BLAST FURNACE CHECKER Primary Care Provider Ciarra Noriega BLAST FURNACE CHECKER Primary Care Provider [phone] Encounter Details Date Type Department Care Team Description 03/03/2014 Historical Results Only [facility] Radiology Resul ts Triston Nuñez MD [address] [place] [address] Social History Tobacco Use Types Packs/Day Years Used Date Former Smoker Smokeless Tobacco: Never Used Alcohol Use Standard Drinks/Week Comments No 0 (1 standard drink = 0.6 oz pure alcoho l) Sex Assigned at Date Recorded Not on file documented as of this encounter Plan of Treatment Not on filedocumented as of this encounter Procedures Procedure Name Priority Date/Time Associated Diagnosis Comme nts XR CHEST 2 VIEWS 03/03/2014 10:20 EST Res ults for this procedure are i n the results section. documented in this encounter Results XR CHEST 2 VIEWS (03/03/2014 10:20 EST) Specimen Narrative [facility] - 03/03/2014 10:24 EST ? EXAM: RADIOLOGY/CHEST (PA ?? LAT) ?EX. D/ (0935) ? CLINICAL INFORMATION: ? HYPOXEMIA ? INDICATION: Shortness of breath ? TECHNIQUE: ??Chest, PA and latera l views ? COMPARISON: 12/18/13 ? FINDINGS: ??The cardiomediastinal silhouette and pulmonary vessels are ? within normal limits. ??The lungs are clear. No pleural effusion or ? pneumothorax is seen. ? IMPRESSION: ? Lungs clear. ? REPORT SIGNED IN OTHER VENDOR SYSTEM 03/03/2014 ?Reported B y: iWlber Tse MD ? CC: ? Transcribed Date/Time: 03/03/2014 (1024) ? Plant Electrical Engineer: ? Printed Date/Time: 09/22/2018 (17 26) ? PAGE 1 ? Bhavana d Report ? Procedure Note Wilber Tse MD - 02/24/2019 EXAM: RADIOLOGY/CHEST (PA LAT) EX. D/ (0935) CLINICAL INFORMATION: HYPOXEMIA INDICATION: Shortness of breath TECHNIQUE: Chest, PA and lateral views COMPARISON: 12/18/13 FINDINGS: The cardiomediastinal silhoue tte and pulmonary vessels are within normal limits. The lungs are ana maria ar. No pleural effusion or pneumothorax is seen. IMPRESSION: Lungs clear. REPORT SIGNED IN OTHER VENDOR SYSTEM 03/03/2014 Reported By: Wilber Tse MD CC: Transcribed Date/Time: 03/03/2014 (1024 ) Plant Electrical Engineer: Printed Date/Time: 09/22/2018 (1911) PAGE 1 Signed Report Performing Organization Address City/State/ZIP Code Phon e Number [facility] documented in this encounter Visit Diagnoses Not on filedocumented in this encounter Care Teams Cake Press Operator Helper Relationship Specialty Start Date End Date Betty Mo FNP PCP - General 03/20/12 02/28/15 [address] [place] [phone] Cassandra Riley NP PCP - General 03/01/15 03/27/15 4 [place] [address] Ciarra Noriega NP PCP - General 03/28/15 documented as of this encounter
--- OUTSIDE RECORDS SUMMARY | 2021-10-13 17:11 | XMS_ITS | Encounter Summary ---
:1975 Author Organization [facility] Address [address] [place] [address] Care Team Providers Name Role Phone Prudencio Stevens MD Primary Care Provider Unavailable Betty Mo PICTURE FRAME MAKER Primary Care Provider Cassandra Riley RESTORATION ECOLOGIST Primary Care Provider Ciarra Noriega RESTORATION ECOLOGIST Primary Care Provider [phone] Encounter Details Date Type Department Care Team Description 04/08/2000 Hospital Encounter [facility] - Nathan Fry MD [address] [place] [address] Other Unknown, Provider, [address] [place], [place] [phone] Social History Tobacco Use Types Packs/Day Years Used Date Former Smoker Smokeless Tobacco: Never Used Alcohol Use Standard Drinks/Week Comments No 0 (1 standard drink = 0.6 oz pure alcoho l) Sex Assigned at Date Recorded Not on file documented as of this encounter Plan of Treatment Not on filedocumented as of this encounter Procedures Procedure Name Priority Date/Time Associated Diagnosis Comme nts CYTOPATHOLOGY Routine 04/08/2000 0:00 EST Results for this procedure are i n the results section . documented in this encounter Results CYTOPATHOLOGY (04/08/2000 0:00 EST) Pathology Report: CYTOPATHOLOGY REPORT [facility] Reports generated via electronic interface contain kristin ginal data; however they are lacking the format of the original re port. Caution should be taken when reading/interpreting unfo rmatted reports. Name: ? TERESA ALVAREZ ? Accession #: ? [id number] : ? 1975 (Age: 24) ??F ?Collect Date: ? 03/22 Location: ? [facility] ? Receive Date : ? 04/10/2000 Provider: ?NATHAN FRY MD Copy to: ? Specimen/Source: ?ThinPrep Pap Test, Source Not Provided Last Menstrual Period: ? SPECIMEN ADEQUACY ? Satisfactory for evaluation. GENERAL CATEGORIZATION ? Benign Cellular Changes DESCRIPTIVE DIAGNOSIS ? Predominance of coccobacilli present consistent with shift in vaginal annelise. ? Document reviewed and electronically signed by: ? FRANK Melton(ASCP) ? Report Date: ??04/11/2000 12:38 End of Report Specimen Performing Organization Address City/State/ZIP Code Phon e Number [facility] [address] [place] [address] SERVICES [facility] [address] [place] [address] documented in this encounter Visit Diagnoses Not on filedocumented in this encounter Care Teams Machine Ironer Relationship Specialty Start Date End Date Prudencio Stevens MD PCP - General 02/26/12 02/26/12 [address] [place] [address] Betty Mo FNP PCP - General 03/20/12 02/28/15 4 [place] [address] Cassandra Riley NP PCP - General 03/01/15 03/27/15 4 [facility] [address] Ciarra Noriega NP PCP - General 03/28/15 documented as of this encounter
--- OUTSIDE RECORDS SUMMARY | 2021-10-13 17:11 | XMS_ITS | Encounter Summary ---
:1975 Author Organization [facility] Address [address] [place] [address] Care Team Providers Name Role Phone Prudencio Stevens MD Primary Care Provider Unavailable Betty Mo DIGITAL CAMPAIGN SPECIALIST Primary Care Provider Cassandra Riley CUT OFF TENDER GLASS Primary Care Provider Ciarra Noriega CUT OFF TENDER GLASS Primary Care Provider [phone] Encounter Details Date Type Department Care Team Description 09/06/2000 Hospital Encounter [facility] - Nathan Fry MD [address] [place], [place] [address] Other Unknown, Provider, [address] [place], [place] [id number] Social History Tobacco Use Types Packs/Day Years [...] Date/Time Associated Diagnosis Comme nts CYTOPATHOLOGY Routine 09/06/2000 0:00 EDT Results for this procedure are i n the results section . documented in this encounter Results CYTOPATHOLOGY (09/06/2000 0:00 EDT) Pathology Report: CYTOPATHOLOGY REPORT [facility] Reports generated via electronic interface contain kristin ginal data; however they are lacking the format of the original re port. Caution should be taken when reading/interpreting unfo rmatted reports. Name: ? TERESA ALVAREZ ? Accession #: ? [id number] : ? 1975 (Age: 24) ??F ?Collect Date: ? 08/20 Location: ? [facility] ? Receive Date : ? 09/10/2000 Provider: ?NATHAN FRY MD Copy to: ? Specimen/Source: ?ThinPrep Pap Test, Cervix/ Endocervix Last Menstrual Period: ? SPECIMEN ADEQUACY ? Satisfactory for evaluation. GENERAL CATEGORIZATION ? Epithelial Cell Abnormality DESCRIPTIVE DIAGNOSIS ? Atypical squamous nya ls of undetermined significance (ASCUS), cannot rule out squamous intraepithelial lesion (SCOTT). RECOMMENDATION ? Recommend clinical correlation and further eval uation, as clinically indicated. ? Document reviewed and electronically signed by: ? Arianna Deal MD ? Report Date: ??09/12/2000 17:13 End of Report Specimen Performing Organization Address City/State/ZIP Code Phon e Number [facility] [address] [place] [address] SERVICES [facility] [address] [place] [address] documented in this encounter Visit Diagnoses Not on filedocumented in this encounter Care Teams Household Refrigerator Mechanic Relationship Specialty Start Date End Date Prudencio Stevens MD PCP - General 02/26/12 02/26/12 [address] [place] [address] Betty Mo FNP PCP - General 03/20/12 02/28/15 [address] [place] [address] Cassandra Riley NP PCP - General 03/01/15 03/27/15 [address] [place] [address] Ciarra Noriega NP PCP - General 03/28/15 documented as of this encounter
--- OUTSIDE RECORDS SUMMARY | 2021-10-13 17:11 | XMS_ITS | CCD ---
:1975 Author Care Team Providers Name Role Phone COURT ROA, SANTY Villanueva Attending Physician Unavailable Vital Signs Unknown or Not Available. Allergies [...] Encounters Encounter Diagnosis Diagnosis Code Start Date Other hyperlipidemia [id number] 12/01/2020 Social History Smoking Status Code Start Date End Date Former smoker [id number] 04/22/1994 04/22/2008 Patient Decision Aids Unknown or Not Available. Discharge Instructions You were admitted to [facility] on 12/01/2020 10:37 with a principal diagnosis of Other hyperlipidemia You were discharged from [facility] on 12/01/2020 10:37 Should you have any questions prior to d ischarge, please contact a member of your healthcare team. If you have left the spital and have any questions, please contact your primary care physician. Chief Complaint and Reason For Visit Unknown or Not Available. Function Status Unknown or Not Available. Plan of Care Unknown or Not Available. Referral/Transition of Care Unknown or Not Available.
--- OUTSIDE RECORDS SUMMARY | 2021-10-13 17:11 | XMS_ITS | Encounter Summary ---
:1975 Author Organization [facility] Address [address] [place] [address] Care Team Providers Name Role Phone Unavailable Primary Care Provider Unavailable Encounter Details Date Type Department Care Team Description 07/06/2002 Results Only [facility] - Fr abigail Moreno MD [place] [address] [facility] [address] [place], [place] [address] [place] [id number] [phone] Social History Tobacco Use Types Packs/Day Years Used Date Never Assessed Sex Assigned at Date Recorded Not on file documented as of this encounter Plan of Treatment Not on filedocumented as of this encounter Procedures Procedure Name Priority Date/Time Associated Diagnosis Comme nts CYTOPATHOLOGY Routine 07/06/2002 0:00 EST Results for this procedure are i n the results section . documented in this encounter Results CYTOPATHOLOGY (07/06/2002 0:00 EST) Pathology Report: CYTOPATHOLOGY REPORT [facility] Reports generated via electronic interface contain kristin ginal data; however they are lacking the format of the original re port. Caution should be taken when reading/interpreting unfo rmatted reports. Name: ? TERESA ALVAREZ ? Accession #: ? [id number] : ? 1975 (Age: 26) ??F ?Collect Date: ? 06/20 Location: ? [facility] ? Receive Date : ? 07/08/2002 Provider: ?LISA MORENO MD Copy to: ? Specimen/Source: ?ThinPrep Pap Test, Cervix Last Menstrual Period: ? 05/24/01 Hormonal/Contraceptive Status: ? Oral contraceptives Treatment History: ? LEEP: 10/20 ? SPECIMEN ADEQUACY ? Satisfactory for Evaluation - transformation zone component present GENERAL CATEGORIZATION ? Negative for Intraepithelial Lesion or Malignan cy ? Document reviewed and electronically signed by: ? FRANK Nguyen(ASCP) ? Report Date: ??07/10/2002 08:20 End of Report Specimen Performing Organization Address City/State/ZIP Code Phon e Number [facility] [address] [place] [address] [facility] [address] [place] [address] documented in this encounter Visit Diagnoses Not on filedocumented in this encounter
--- OUTSIDE RECORDS SUMMARY | 2021-10-13 17:11 | XMS_ITS | Encounter Summary ---
:1975 Author Organization [facility] Address [address] [place] [address] Care Team Providers Name Role Phone Prudencio Stevens MD Primary Care Provider Unavailable Betty Mo REGIONAL HR MANAGER Primary Care Provider Cassandra Riley BILLPOSTER Primary Care Provider Ciarra Noriega BILLPOSTER Primary Care Provider [phone] Encounter Details Date Type Department Care Team Description 07/06/2002 Hospital Encounter [facility] - Nathan Fry MD [address] [place] [address] Other Unknown, Provider, [address] [place], [place] [address] Social History Tobacco Use Types Packs/Day Years [...] on filedocumented in this encounter Care Teams Rn Occupational Relationship Specialty Start Date End Date Prudencio Stevens MD PCP - General 02/26/12 02/26/12 9 [place] [address] Betty oM FNP PCP - General 03/20/12 02/28/15 [address] [place] [phone] Cassandra Riley, BILLPOSTER PCP - General 03/01/15 03/27/15 [address] [place] [address] Ciarra Noriega NP PCP - General 03/28/15 documented as of this encounter
--- OUTSIDE RECORDS SUMMARY | 2021-10-13 17:11 | XMS_ITS | Encounter Summary ---
:1975 Author Organization [facility] Address [address] [place] [address] Care Team Providers Name Role Phone Prudencio Stevens MD Primary Care Provider Unavailable Betty Mo ROTARY RIG ENGINE OPERATOR Primary Care Provider Cassandra Riley FILLING AND PACKING SUPERVISOR Primary Care Provider Ciarra Noriega FILLING AND PACKING SUPERVISOR Primary Care Provider [phone] Encounter Details Date Type Department Care Team Description 09/26/2000 Hospital Encounter [facility] - Nathan Fry MD [address] [place], [place] [address] Other Unknown, Provider, [address] [place], [place] [phone] Social History Tobacco Use Types Packs/Day Years [...] Date/Time Associated Diagnosis Comme nts CYTOPATHOLOGY Routine 09/26/2000 0:00 EDT Results for this procedure are i n the results section . documented in this encounter Results CYTOPATHOLOGY (09/26/2000 0:00 EDT) Pathology Report: CYTOPATHOLOGY REPORT [facility] Reports generated via electronic interface contain kristin ginal data; however they are lacking the format of the original re port. Caution should be taken when reading/interpreting unfo rmatted reports. Name: ? TERESA ALVAREZ ? Accession #: ? [id number] : ? 1975 (Age: 24) ??F ?Collect Date: ? 10/2000 Location: ? [facility] ? Receive Date : ? 09/27/2000 Provider: ?NATHAN FRY MD Copy to: ? Specimen/Source: ?ThinPrep Pap Test, Source Not Provided Last Menstrual Period: ? 09/23/00 Previous Gynecologic Pathology: ? ASC-US: /SCOTT & 08/20 ? SPECIMEN ADEQUACY ? Satisfactory for evaluation. GENERAL CATEGORIZATION ? Epithelial Cell Abnormality DESCRIPTIVE DIAGNOSIS ? Atypical squamous cells of undetermined signifi cance (ASCUS), favor reactive process. RECOMMENDATION ? Recommend clinical correlation and further eval uation, as clinically indicated. ? Document reviewed and electronically signed by: ? Kiana Garcia MD ? Report Date: ??10/07/2000 17:09 End of Report Specimen Performing Organization Address City/State/ZIP Code Phon e Number [facility] [address] [place] [address] SERVICES [facility] [address] [place] [address] documented in this encounter Visit Diagnoses Not on filedocumented in this encounter Care Teams School Teacher Relationship Specialty Start Date End Date Prudencio Stevens MD PCP - General 02/26/12 02/26/[address] [place] [address] Betty Mo FNP PCP - General 03/20/12 02/28/15 4 [place], [place] [address] Cassandra Riley NP PCP - General 03/01/15 03/27/15 4 [place], [place] [address] Ciarra Noriega NP PCP - General 03/28/15 documented as of this encounter
--- OUTSIDE RECORDS SUMMARY | 2021-10-13 17:11 | XMS_ITS | Encounter Summary ---
:1975 Author Organization [facility] Address [address] [place] [address] Care Team Providers Name Role Phone Prudencio Stevens MD Primary Care Provider Unavailable Betty Mo READING PROFESSOR Primary Care Provider Cassandra Riley DISTRICT SCOUT EXECUTIVE Primary Care Provider Ciarra Noriega DISTRICT SCOUT EXECUTIVE Primary Care Provider [phone] Encounter Details Date Type Department Care Team Description 07/18/2001 Hospital Encounter [facility] - Nathan Fry MD [address] [place] [address] Other Unknown, Provider, [address] [place], [place] [id number] Social History Tobacco Use Types Packs/Day Years [...] Date/Time Associated Diagnosis Comme nts CYTOPATHOLOGY Routine 07/18/2001 0:00 EST Results for this procedure are i n the results section . documented in this encounter Results CYTOPATHOLOGY (07/18/2001 0:00 EST) Pathology Report: CYTOPATHOLOGY REPORT [facility] Reports generated via electronic interface contain kristin ginal data; however they are lacking the format of the original re port. Caution should be taken when reading/interpreting unfo rmatted reports. Name: ? TERESA ALVAREZ ? Accession #: ? [id number] : ? 1975 (Age: 25) ??F ?Collect Date: ? 06/21 Location: ? [facility] ? Receive Date : ? 07/21/2001 Provider: ?NATHAN FRY MD Copy to: ? Specimen/Source: ?ThinPrep Pap Test, Cervix/ Endocervix Last Menstrual Period: ? SPECIMEN ADEQUACY ? Satisfactory for Evaluation - transformation zone component present GENERAL CATEGORIZATION ? Negative for Intraepithelial Lesion or Malignan cy INTERPRETATION ? Shift in annelise present suggestive of bacterial vaginosis. ? Document reviewed and electronically signed by: ? FRANK Mckeon(ASCP) ? Report Date: ??07/24/2001 14:42 End of Report Specimen Performing Organization Address City/State/ZIP Code Phon e Number [facility] [address] [place] [address] [facility] [address] [place] [address] documented in this encounter Visit Diagnoses Not on filedocumented in this encounter Care Teams Bottom Brusher Relationship Specialty Start Date End Date Prudencio Stevens MD PCP - General 02/26/12 02/26/12 [address] [place] [address] Betty Mo FNP PCP - General 03/20/12 02/28/15 [address] [place] [address] Cassandra Riley NP PCP - General 03/01/15 03/27/15 [address] [place] [address] Ciarra Noriega NP PCP - General 03/28/15 documented as of this encounter
--- OUTSIDE RECORDS SUMMARY | 2021-10-13 17:11 | XMS_ITS | Encounter Summary ---
:1975 Author Organization [facility] Address [address] [place] [address] Care Team Providers Name Role Phone Unavailable Primary Care Provider Unavailable Encounter Details Date Type Department Care Team Description 10/31/2000 Results Only [facility] - Fr abigail Moreno MD Maple conversion [address] [facility] [address] [place], [place] [id number] [place] [id number] [phone] Social History Tobacco Use Types Packs/Day Years Used Date Never Assessed Sex Assigned at Date Recorded Not on file documented as of this encounter Plan of Treatment Not on filedocumented as of this encounter Procedures Procedure Name Priority Date/Time Associated Diagnosis Comme nts SURGICAL PATHOLOGY Routine 10/31/2000 0:00 EDT Re sults for this procedure are i n the results section. documented in this encounter Results SURGICAL PATHOLOGY (10/31/2000 0:00 EDT) Pathology Report: SURGICAL PATHOLOGY REPORT [facility] Reports generated via electronic interface contain kristin ginal data; LAB however they are lacking the format of the original re port. Caution should be taken when reading/interpreting unfo rmatted reports. Name: ? TERESA ALVAREZ ? Accession #: ? [id number] ? : ? 1975 (Age: 24) ??F ? Collect Date: ? 10/31/2000 ? Location: ? [facility] ? Receive Date: ? 001 ? Provider: LISA MORENO MD Copy to: ANTHONY FUNES MD ? Final Pathologic Diagnosis: ? Cervix, LEEP excision: 1. ?Acute and chronic cervicitis with stephanie ctive ectocervical and endocervical epithelial cells. 2. ?Negative for dysplasia. ??See comment . Comment: ? We noticed that this patient had had a number o f PAP smears showing atypical cells of uncertain significance (ASCUS) in the past two years. ??The most recent PAP smear was si gned out as ASCUS, favor reactive. ??We do not have any specimens from this patient on file indicating a l ow grade dysplasia. Recommend clinical correlation. ??(Dr. Maguire)/[facility] [place] Document reviewed and electronically signed by: CANDICE MAGUIRE MD Report ??Date: 11/06/2000 17:36 By the signature above, the attending physician certif ies that he/she has personally conducted a gross and/or microscopic examin ation of the described specimens and rendered or confirmed the above diagnosi s. Specimen(s) Received: ? Cervical LEEP bx Clinical History: ? Hx of low grade SCOTT of cervix Gross Description: ? Received in formalin labelled Fanta mikaela and #1 LEEP is a product of the LEEP excision of the cervix received in two [facility] es which measures 1.9 x 1.1 x 0.4 cm and 1.7 x 1.7 x 0.4 c m. ??Both pieces have a white smooth mucosa and the remaining mucosa being valadez and granular. ??The ectocervix margin and both pieces are blue inked and the endocervix margin is black inke d. ??Both pieces are entirely sectioned and submitted as (A1) to (A6). Spec imen is red-brown hemorrhagic material, no greater than 0.5 cc submitted as (A7). ??(Dr. Poe)/[facility] End of Report Specimen Performing Organization Address City/State/ZIP Code Phon e Number [facility] [address] [place] [address] [facility] [address] [place] [address] documented in this encounter Visit Diagnoses Not on filedocumented in this encounter
--- OUTSIDE RECORDS SUMMARY | 2021-10-13 17:11 | XMS_ITS | Encounter Summary ---
:1975 Author Organization [facility] Address [address] [place] [address] Care Team Providers Name Role Phone Prudencio Stevens MD Primary Care Provider Unavailable Betty Mo MISSION COORDINATOR Primary Care Provider Cassandra Riley SUPERVISOR PLEATING Primary Care Provider Ciarra Noriega SUPERVISOR PLEATING Primary Care Provider [phone] Encounter Details Date Type Department Care Team Description 02/01/2000 Hospital Encounter [facility] - Nathan Fry MD [address] [place], [place] [id number] Other Unknown, Provider, [address] [place], [place] [phone] Social History Tobacco Use Types Packs/Day Years [...] Date/Time Associated Diagnosis Comme nts CYTOPATHOLOGY Routine 02/01/2000 0:00 EDT Results for this procedure are i n the results section . documented in this encounter Results CYTOPATHOLOGY (02/01/2000 0:00 EDT) Pathology Report: CYTOPATHOLOGY REPORT [facility] Reports generated via electronic interface contain kristin ginal data; however they are lacking the format of the original re port. Caution should be taken when reading/interpreting unfo rmatted reports. Name: ? TERESA ALVAREZ ? Accession #: ? [id number] : ? 1975 (Age: 24) ??F ?Collect Date: ? 01/20 Location: ? [facility] ? Receive Date : ? 02/02/2000 Provider: ?NATHAN FRY MD Copy to: ? Specimen/Source: ?ThinPrep Pap Test, Cervix/ Endocervix Last Menstrual Period: ? 01/24/00 ? SPECIMEN ADEQUACY ? Satisfactory for evaluation. GENERAL CATEGORIZATION ? Epithelial Cell Abnormality DESCRIPTIVE DIAGNOSIS ? Atypical squamous nya ls of undetermined significance (ASCUS), cannot rule out squamous intraepithelial lesion (SCOTT). ? Document reviewed and electronically signed by: ? Tayla Lema MD ? Report Date: ??02/23/2000 11:03 End of Report Specimen Performing Organization Address City/State/ZIP Code Phon e Number [facility] [address] [place] [address] SERVICES [facility] [address] [place] [address] documented in this encounter Visit Diagnoses Not on filedocumented in this encounter Care Teams Trimmer Sorter Relationship Specialty Start Date End Date Prudencio Stevens MD PCP - General 02/26/12 02/26/12 [address] [place] [address] Betty Mo FNP PCP - General 03/20/12 02/28/15 [address] [place] [address] Cassandra Riley, SUPERVISOR PLEATING PCP - General 03/01/15 03/27/15 4 [facility] [place] [place] [address] Ciarra Noriega NP PCP - General 03/28/15 documented as of this encounter
--- OUTSIDE RECORDS SUMMARY | 2021-10-13 17:11 | XMS_ITS | Encounter Summary ---
:1975 Author Organization [facility] Address [address] [place] [address] Care Team Providers Name Role Phone Ciarra Noriega NP Primary Care Provider [phone] Reason for Referral Laboratory Services (Routine) - Closed Specialty Diagnoses / Procedures Referred By Contact Refer red To Contact Diagnoses TREVOR (acute kidney injury) ([facility]) ([facility]) Tommy Loja MD Procedures ALBUMIN, URINE [address] [address] Referral ID Status Reason Start Date Expiration Date Visits Requ ested Visits Authorized [id number] Closed 03/29/2015 1 1 aboratory Services (Routine) - Closed Specialty Diagnoses / Procedures Referred By Contact Refer red To Contact Diagnoses TREVOR (acute kidney injury) ([facility]) ([facility]) Tommy Loja MD Procedures URINALYSIS WITH REFLEX MICROSCOPIC [address] [address] Referral ID Status Reason Start Date Expiration Date Visits Requ ested Visits Authorized [id number] Closed 03/29/2015 1 1 aboratory Services (Routine) - Closed Specialty Diagnoses / Procedures Referred By Contact Refer red To Contact Diagnoses TREVOR (acute kidney injury) ([facility]) ([facility]) Tommy Loja MD Procedures NEPHROLOGY PROFILE (INCLUDES BUN, CREATININE, CALCULATED GFR, ELECTROLYTES, CALCIUM, PHOSPHORUS, ALBUMIN) [address] [place] [address] Referral ID Status Reason Start Date Expiration Date Visits Requ ested Visits Authorized [id number] Closed 03/29/2015 1 1 Reason for Visit Reason Comments Flank Pain Consult (Routine) - Closed Specialty Diagnoses / Procedures Referred By Contact Refer red To Contact Nephrology Diagnoses Elevated serum creatinine Flank pain Cassandra Riley, [employer] Tommy Loja MD 4 [facility] [address] [place] [address] Rehab, Level 2 [place] [address] Phone: Fax: Referral ID Status Reason Start Date Expiration Date Visits Requ ested Visits Authorized [id number] Closed 1 1 Encounter Details Date Type Department Care Team Description 03/29/2015 Office Visit [facility] Charles Loja MD TREVOR (acute kidney Nephrology - [place] [address] [place] [address] injury) ([facility]) 1 [facility] (Primary Dx) [place] [address] Rehab, [place] [address] (Wo rk) Social History Tobacco Use [...] - - Body Mass Index - - documented in this encounter Patient Instructions Patient InstructionsTommy Loja MD - 03/29/2015 13:22 EST Do not take NSAIDs (Aleve, Advil, Motrin, Ibuprofen). Ok to take over the counter Tylenol for pain control documented in this encounter Progress Notes Tommy Loja MD - 04/06/2015 8747 EST [facility] NEPHROLOGY - [facility] CONSULTATION - 03/29/2015 REASON FOR CONSULTATION: Acute kidney injury and flank pain. I am being consulted on Breana Echeverria by her primary care physician, Ciarra Noriega NP, for evaluation and management of acute kidney injury and right flank pain. Amee is a 39-year-old female with no history of chronic kidney disease, baseline creatinine level of 0.6 mg/dcL in May 2014. (proteinuria results not available). ASSESSMENT: 1. Acute kidney injury. Amee had acute kidney injury January 2015 along with microscopic hematuria and proteinuria. The possible causes for her acute kidney injury at that time include E. coli urinary tract infection that she was diagnosed with at that ER visit. Also, she may have been taking NSAIDs and was also given Toradol in the ER and also received a CT with IV contrast. (though contrast-induced acute kidney injury present 48 to 72 hours after contrast exposure). It is unclear if her acute kidney injury has resolved or persisting and thus I will need to recheck her serum creatinine level today. 2. Right flank pain. Amee does have right flank pain. She had a CT pelvis with IV and oral contrast in November [address] abdomen/pelvis (stone protocol in January 2015). CT scan (stone protocol)revealed no evidence of nephrolithiasis, though her right ureter was dilated. The causes for her right flank pain are still unclear, but possible causes include: Urinary obstruction or renal infarction or papillary necrosis. At this time, I will need to review if she ever had a CT abdomen with IV contrast basically looking at the kidneys and if she has not had that, I will consider having her undergo CT abdomen/pelvis withIV contrast to evaluate the right flank pain and specifically to look at the kidneys. If I am still unable to find the cause for right flank pain, I will then consider sending her to a urologist for further evaluation. (at [facility]) Amee verbalized understanding and agreement. RECOMMENDATIONS: 1. Will recheck nephrology profile, urinalysis and urine albumin/creatinine ratio today. 2. Will obtain images of the imaging studies done and will consider a CT abdomen/pelvis with IV contrast to specifically look at the kidneys. 3. Further recommendations based on the results of the above studies and may consider urology input at that time. 4. I will see Amee again in 4 weeks at followup. Addendum: CT scan of kidneys with iv contrast in Nov 2014 showed no evidence of obstruction. Unclearas to cause of ongoing flank pain - will refer to Urology for further input. HISTORY OF PRESENT ILLNESS: Breana comes in today to establish nephrology care. She tells me that she has been having right flank pain that started in June 2014. She describes the pain as constant pain that waxes and wanes and the severity increases from 3/10 to as high as 9/10. She describes the pain as a dull aching pain but that does become sharp intermittently. She denies any exacerbating or relieving factors or radiation of the pain. She does tell me that the pain symptoms improved slightly with ibuprofen/Tylenol intake. She had a CT pelvis (per report) in November 2014 and then had an ER visit for the right flank pain inOc2014. At that time she was found to have acute kidney injury. She was diagnosed to have E. coli UTI and received oral antibiotics (ciprofloxacin 500 mg twice daily for 7 days). Her pain symptoms did not improve completely. She denies any gross hematuria or urinary hesitancy or burning micturition or urinary frequency. Shedenies any bilateral lower extremity swelling. PAST MEDICAL AND SURGICAL HISTORY: 1. History of gastroesophageal reflux disease, on Protonix for the past 4 years. 2. History of asthma. 3. Status post hysterectomy and bilateral salpingo-oophorectomy in 2006 or menorrhagia. SOCIAL HISTORY: Quit smoking in 2006. Denies alcohol or illicit drug use, is independent of activities of daily living. She has 4 children and her last was 20 years ago. FAMILY HISTORY: No history of family members with kidney disease requiring dialysis or transplantation. Mother had WA at the age of 54 and breast cancer, father had WA at age of 68, 2 maternal aunts with ovarian cancer and breast cancer. Medications reviewed in [facility] Current Outpatient Prescriptions Medication Sig Dispense Refill ??? albuterol 90 mcg/actuation inhaler Inhale 2 Puffs as directed every 4 hours as needed for Wheezing ??? loratadine (CLARITIN) 10 mg tablet Take 10 mg by mouth daily ??? pantoprazole (PROTONIX) 20 mg tablet Take 40 mg by mouth daily. No current facility-administered medications for this visit. Allergies reviewed in [facility] No Known Allergies Review of systems: Cardiovascular sytem: no chest pain, palpitations or breathlesness Respiratory system: no shortness of breath, cough or wheezing Gastrointestinal system: no abdominal pain, diarrhea or constipation All other of the 14 systems were reviewed and found to be negative except as stated in the History of Present illness On examination: Patient is alert, awake, oriented X3. Vitals There were no vitals filed for this visit. 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 Pertinent labs: Lab Results Component Value Date CLEXT 101 02/04/2015 CO2EXT 31 02/04/2015 KEXT 4.4 02/04/2015 SODIUMEXT 139 02/04/2015 BUNEXT 19 02/04/2015 CREATININEEX 1.16 02/04/2015 CALCGFREXT 51 02/04/2015 ASTEXT 17 02/04/2015 ALTEXT 23 02/04/2015 CALCIUMEXT 9.7 02/04/2015 ALBUMINEXT 4.6 02/04/2015 No PCR results found Thank you for allowing me to participate in the care of Breana Echeverria. Please do not hesitate to contact me if there are any questions. Tommy Loja MD Renal Attending documented in this encounter Consult Notes Tommy Loja MD - 03/29/2015 1528 EST [facility] - [facility] CONSULTATION - 03/29/2015 REASON FOR CONSULTATION: Acute kidney injury and flank pain. I am being consulted on Breana Echeverria by her primary care physician, Ciarra Noriega, LULA, for evaluation and management of acute kidney injury and right flank pain. Amee is a 39-year-old female with no history of chronic kidney disease, baseline creatinine level of 0.6 mg/dcL in May 2014. (proteinuria results not available). ASSESSMENT: 1. Acute kidney injury. Amee had acute kidney injury January 2015 along with microscopic hematuria and proteinuria. The possible causes for her acute kidney injury at that time include E. coli urinary tract infection that she was diagnosed with at that ER visit. Also, she may have been taking NSAIDs and was also given Toradol in the ER and also received a CT with IV contrast. (though contrast-induced acute kidney injury present 48 to 72 hours after contrast exposure). It is unclear if her acute kidney injury has resolved or persisting and thus I will need to recheck her serum creatinine level today. 2. Right flank pain. Amee does have right flank pain. She had a CT pelvis with IV and oral contrast in November [address] abdomen/pelvis (stone protocol in January 2015). CT scan (stone protocol)revealed no evidence of nephrolithiasis, though her right ureter was dilated. The causes for her right flank pain are still unclear, but possible causes include: Urinary obstruction or renal infarction or papillary necrosis. At this time, I will need to review if she ever had a CT abdomen with IV contrast basically looking at the kidneys and if she has not had that, I will consider having her undergo CT abdomen/pelvis withIV contrast to evaluate the right flank pain and specifically to look at the kidneys. If I am still unable to find the cause for right flank pain, I will then consider sending her to a urologist for further evaluation. (at [facility]) Amee verbalized understanding and agreement. RECOMMENDATIONS: 1. Will recheck nephrology profile, urinalysis and urine albumin/creatinine ratio today. 2. Will obtain images of the imaging studies done and will consider a CT abdomen/pelvis with IV contrast to specifically look at the kidneys. 3. Further recommendations based on the results of the above studies and may consider urology input at that time. 4. I will see Amee again in 4 weeks at followup. HISTORY OF PRESENT ILLNESS: Breana comes in today to establish nephrology care. She tells me that she has been having right flank pain that started in June 2014. She describes the pain as constant pain that waxes and wanes and the severity increases from 3/10 to as high as 9/10. She describes the pain as a dull aching pain but that does become sharp intermittently. She denies any exacerbating or relieving factors or radiation of the pain. She does tell me that the pain symptoms improved slightly with ibuprofen/Tylenol intake. She had a CT pelvis (per report) in November 2014 and then had an ER visit for the right flank pain inOc2014. At that time she was found to have acute kidney injury. She was diagnosed to have E. coli UTI and received oral antibiotics (ciprofloxacin 500 mg twice daily for 7 days). Her pain symptoms did not improve completely. She denies any gross hematuria or urinary hesitancy or burning micturition or urinary frequency. Shedenies any bilateral lower extremity swelling. PAST MEDICAL AND SURGICAL HISTORY: 1. History of gastroesophageal reflux disease, on Protonix for the past 4 years. 2. History of asthma. 3. Status post hysterectomy and bilateral salpingo-oophorectomy in 2006 or menorrhagia. SOCIAL HISTORY: Quit smoking in 2006. Denies alcohol or illicit drug use, is independent of activities of daily living. She has 4 children and her last was 20 years ago. FAMILY HISTORY: No history of family members with kidney disease requiring dialysis or transplantation. Mother had WA at the age of 54 and breast cancer, father had WA at age of 68, 2 maternal aunts with ovarian cancer and breast cancer. Medications reviewed in [facility] Current Outpatient Prescriptions Medication Sig Dispense Refill ??? albuterol 90 mcg/actuation inhaler Inhale 2 Puffs as directed every 4 hours as needed for Wheezing ??? loratadine (CLARITIN) 10 mg tablet Take 10 mg by mouth daily ??? pantoprazole (PROTONIX) 20 mg tablet Take 40 mg by mouth daily. No current facility-administered medications for this visit. Allergies reviewed in [facility] No Known Allergies Review of systems: Cardiovascular sytem: no chest pain, palpitations or breathlesness Respiratory system: no shortness of breath, cough or wheezing Gastrointestinal system: no abdominal pain, diarrhea or constipation All other of the 14 systems were reviewed and found to be negative except as stated in the History of Present illness On examination: Patient is alert, awake, oriented X3. There were no vitals filed for this visit. Head, ear, eye, nose, throat exam: no pallor, no icterus, neck supple Respiratory system: Lungs clear to auscultation bilaterally CVS: S1 S2 normal, no murmurs, rubs or gallops P/A: soft, non tender, non distended, no organomegaly, no costovertebral angle tenderness, Bowel sounds positive Extremities: no edema TETRYL WRINGER OPERATOR: no focal neurological deficits. Pertinent labs: Lab Results Component Value Date CLEXT 101 02/04/2015 CO2EXT 31 02/04/2015 KEXT 4.4 02/04/2015 SODIUMEXT 139 02/04/2015 BUNEXT 19 02/04/2015 CREATININEEX 1.16 02/04/2015 CALCGFREXT 51 02/04/2015 ASTEXT 17 02/04/2015 ALTEXT 23 02/04/2015 CALCIUMEXT 9.7 02/04/2015 ALBUMINEXT 4.6 02/04/2015 No PCR results found Thank you for allowing me to participate in the care of Breana Echeverria. Please do not hesitate to contact me if there are any questions. Tommy Loja MD Renal Attending documented in this encounter Plan of Treatment Not on filedocumented as of this encounter Results ALBUMIN, URINE (03/29/2015) Pathologist Sig nature Microalb ug/mg Crea, 38.0 [facility] External CENTER LAB Microalb mg/dl, External 1.91 [facility] Creatinine, Random U 49.50 [facility] ([facility]), External CENTER LAB Specimen Urine (substance) Performing Organization Address City/State/ZIP Code Phon e Number [facility] [address] [place], [place] [id number] [place] [address] LAB URINALYSIS WITH REFLEX MICROSCOPIC (03/29/2015) Pathologist Sig nature Color UA, External yellow [facility] Clarity UA, External clear [facility] Glucose UA, External neg [facility] Bilirubin UA, External neg [facility] Ketones UA, External neg [facility] Specific [place] UA, 1.010 [facility] External CENTER LAB Blood UA, External trace [facility] pH UA, External 6.5 [facility] Protein UA, External neg [facility] Urobilinogen UA, External 0.2 [facility] Nitrite UA, External neg [facility] Leukocyte Esterase UA, neg [facility] External CENTER LAB Specimen Urine (substance) Performing Organization Address [facility] Code Phon e Number [facility] [address] [place], [place] [id number] [place] [address] LAB NEPHROLOGY PROFILE (INCLUDES BUN, CREATININE, CALCULATED GFR, ELECTROLYTES, CALCIUM, PHOSPHORUS, ALBUMIN) (03/29/2015) Pathologist Sig nature Phosphorus, External 3.6 [facility] Albumin, External 4.6 [facility] BUN, External 18 [facility] Chloride, External 101 [facility] Creatinine, External 1.13 [facility] Potassium, External 4.0 [facility] GFR, Calculated, 53 [facility] Calculated Calcium, [facility] Calcium, External 9.7 [facility] Sodium, External 139 [facility] CO2, External 29 [facility] Specimen Blood specimen (specimen) Performing Organization Address [facility] Phon e Number [facility] [address] LAB documented in this encounter Visit Diagnoses Diagnosis TREVOR (acute kidney injury) ([facility]) ([facility] ) - Primary Acute kidney failure, unspecified documented in this encounter Care Teams Commissary Superintendent Relationship Specialty Start Date End Date Ciarra Noriega NP PCP - General 03/28/15 documented as of this encounter
--- OUTSIDE RECORDS SUMMARY | 2021-10-13 17:11 | XMS_ITS | Encounter Summary ---
:1975 Author Organization [facility] Address [address] [place] [address] Care Team Providers Name Role Phone Unavailable Primary Care Provider Unavailable Reason for Visit Reason Comments Referral Request Referred by Dr. Best gudino for evaluation of visual field defect. Patient noticed she was havi ng trouble seeing in the periphery in her right eye for the past f ew years. Headaches behind right eye with 9/10 on pain scale. Sha rp pains behind right eye. Uses Tylenol/Ibuprophen for pain. Using Lumigan hs/hs for past month. IOP's have been 22 and 16 fo r the last 2 months. Right eye vision white cloud then blurriness then clearing. Scalp tenderness on occasion.No trouble chewing. Eye Problem Only medication is Protonix for acid reflux. No steroids, high dose vitamin A, lithium or antibi otics. Has vertical diplopia on occasion. Has flashing and f loaters. Encounter Details Date Type Department Care Team Description 02/27/2012 Office Visit [facility] Jorge Beach MD Ophthalmology - [address], [address], [address] [place], [place] [address] [place] [address] [phone] (Wo rk) Social History Tobacco Use Types Packs/Day Years Used Date Former Smoker Smokeless Tobacco: Never Used Alcohol Use Standard Drinks/Week Comments No 0 (1 standard drink = 0.6 oz pure alcoho l) Sex Assigned at Date Recorded Not on file documented as of this encounter Discharge Disposition Disposition Code Departure Means Destination Auto Discharge documented in this encounter Progress Notes Jorge Beach MD - 02/28/2012 0722 EST [facility] February 27, 2012 Best Bojorquez OD [address] [place] [address] Bojorquez: I had the privilege of seeing your patient today. She was seen because of a visual field defect in the right eye. She has also been having trouble seeing in the periphery in the right eye. She is on Lumigan. She does have occasional vertical diplopia. The patient, on examination, has vision of 20/20 in each eye and Jeff 1+. The color vision is 10.5/14 and 11.5/14 with the [employer] Pseudoisochromatic Plates. The pupils react minimally to bright light. There is no afferent defect. There is definite light-near dissociation. Confrontation carrasquillo show marked contracture of the right eye and normal in the left eye. Ocular motility is normal. There is 80 seconds of stereopsis. The Amsler grid is normal. The slit lamp examination of the anterior segments is unremarkable except for vermian movement of the pupil margin in each eye. The dilated examination shows minimal nuclear sclerosis in each eye. The capsule is healthy. There is vitreous syneresis in each eye. There is cup-to-disc asymmetry with the right eye being 0.5 x 0.5 and the left 0.3 x 0.3. The nerve is pink, healthy and flat. This is true in each eye. The right nerve measures 1.8 mm, the left measures 1.7 mm. There are spontaneous venous pulsations in each eye, and the macula is normal. Finally, the retinal periphery is completely normal and attached without any pigmentary abnormality. In the right eye, there is marked total depression of the field, although the foveal threshold is 35. In the left eye, the field is absolutely normal with a foveal threshold of 37. In summary, the patient has a markedly abnormal field and contracted visual carrasquillo. Nerve fiber thickness had been carried out by you, Dr Bojorquez, and the average thickness is 88 microns in the right and 89 in the left. There is some thinning temporally in each eye. These were both 10 out of 10 scans. I am going to order an MRI to make sure that there is not pathology that might explain her visual field defect. In addition, I will have her back and we will carry out dilute pilocarpine testing. Although there is some cup-to-disc asymmetry, the biggest concern is a contracted field in the righteye. It is interesting on the OCT that there is some thinning temporally in each eye. With this in mind, we will get an MRI. I am going to have her back and do a Goldmann field in the right eye as well and also do 1/8% pilocarpine testing. 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 I will keep you posted on the results once the MRI has been obtained. Thank you for allowing me to see your patient in consultation today. Sincerely, Electronically Signed by Jorge Beach MD 03/10/2012 07:57 APhil Sukumar Beach MDNeuro-rheyfutueqbcn[address] [place], [place] [phone] Sukumar Beach MD Jorge Beach MD Neuro-ophthalmology [address] [place], [place] [phone] - Jorge Beach MD - [facility] Job ID: Doc ID: [id number] Ext Doc ID: [id number] cc: ROBBI Salas FNP Jorge Villagomez MD - 02/27/2012 1439 EST . Base Ophthalmology Exam Visual Acuity Right Left Both Dist sc 20/20 -2 20/20 Near cc J1+ J1+ Method: Snellen - Linear Comments: Near vision taken with loose lens +0.75 Tonometry Right Left Pressure 17 14 Method: Applanation Time: 16:32, WS post dil Pachymetry Right Left Thickness 567 559 Date: 01/31/12 Comments: Dr. Best Bojorquez's office Stereo Circles: 80 seconds Color Right Left Color Method: AOPIP Dilation Both eyes: 0.5% Mydriacyl, 2.5% Phenylephrine @ 15:54 Pupils Dark React APD Right 5 Sluggish None Left 5 Sluggish None Visual Carrasquillo Right Left Result Full Restrictions Partial superior temporal, inferior temporal, superior nasal, inferior nasal deficiencies Extraocular Movement Right Left Result Full, Ortho Full, Ortho Comments: Discomfort upon eye movement Base Ophthalmology Exam Addl. Tests Amsler Right Left Amsler Normal Normal Main Ophthalmology Exam Slit Lamp Exam Right Left Lids/Lashes Normal Normal Conjunctiva/Sclera White and quiet; trace stain with l.g. White and quiet; trace stain with l.g. Cornea Clear; TBUT 5; no stain Clear; TBUT 5; no stain Anterior Chamber Deep and quiet; no cell/flare Deep and quiet; no cell/flare Iris Round and reactive; no TI Round and reactive; no TI Lens 1+ Nuclear sclerosis 1+ Nuclear sclerosis Vitreous Vitreous syneresis Vitreous syneresis Fundus Exam Right Left Disc P/H, flat,. intact. No Pallor or edema. 1.8mm vert diam P/H, flat, 1.7 mm C/D Ratio 0.3 0.3 Macula Normal Normal Vessels Normal, 3:2 V/A. +SOCIAL ORGANIZATION PROFESSOR Normal, +SOCIAL ORGANIZATION PROFESSOR Periphery Normal Normal Neuro/Psych Oriented x3: Yes Mood/Affect: Normal Cornea examined, all 5 layers. ROS, Medications, Allergies reviewed. CVF, Pupil check and EOM's rechecked to include versions & ductions. Lids, lashes, lacrimal and orbit examined. All normal unless otherwise noted. This note has been dictated and scanned. 78D and 20D were used for the posterior exam. IMP: Breana was seen today for referral request and eye problem. Diagnoses and associated orders for this visit: Vfd (visual field defect) Comments: Right eye Glaucoma suspect Other Orders - pantoprazole (PROTONIX) 20 mg tablet; Take 40 mg by mouth daily. PLAN: I am scribing for Jorge Beach MD while he is personally performing the service. Sweetie Signaigo, COT (Scribe) Test Performed: HVF 24-2 SS Indications for test: VF defect right eye Results/Findings: grossly depressed VF in right eye -fovea 35/ left eye is normal Plan: order MRI of brain documented in this encounter Miscellaneous Notes Scanned Note-Null - TYPE CASTER, SCAN 2 - 03/04/2012 1518 EST documented in this encounter Plan of Treatment Not on filedocumented as of this encounter Procedures Procedure Name Priority Date/Time Associated Diagnosis Comme nts MR HEAD W/WO 03/23/2012 12:02 Results for this CONTRAST EST procedure are i n the results section. documented in this encounter Results MR HEAD W/WO CONTRAST (03/23/2012 12:02 EST) Anatomical Region Laterality Modality Other Specimen Narrative MR ROOM 1 [facility] - 03/23/2012 12:45 EST MRI HEAD WITH AND WITHOUT CONTRAST MRI PITUITARY WITH AND WITHOUT CONTRAST Indication: April 02, 2012 Indication: Visual field defect right eye and possib le bitemporal visual field defect. Comparison: None available. Technique: Axial T2, T2 FLAIR, GRE and DWI and trip lanar T1 pre- and postcontrast MR images of the entire bra in were obtained. Sagittal T1 pre- and postcontrast and co bill T1, T2 and T1 postcontrast MR images of the pituitary gland were obtained. Findings: The ventricles and sulci are age-appropr iate. There is no midline shift. The basilar cisterns are patent. Signal intensity throughout the brain and brainstem is unremarkable. No enhancing lesions are identified. The pituitary gland as slightly prominen t with a convex upward margin. This does extend slightly into t he suprasellar region but does not contact the optic chiasm. The a denohypophysis enhances homogeneously. There is a normal posteri or pituitary bright spot. The infundibulum is normal caliber and midli ne in position. The paranasal sinuses and mastoid air ce lls are clear. Gross orbital abnormality is not appreciated. Impression: 1. Slightly prominent adenohypophysis ca n be a normal finding in females of menstruating age. This does h ave slight suprasellar extension but does not contact the optic chiasm. No focal pituitary lesion is identified. 2. Otherwise unremarkable contrast-enhan adeline brain MRI. Procedure Note 03/23/2012 MRI HEAD WITH AND WITHOUT CONTRAST MRI PITUITARY WITH AND WITHOUT CONTRAST Indication: April 02, 2012 Indication: Visual field defect right eye and possib le bitemporal visual field defect. Comparison: None available. Technique: Axial T2, T2 FLAIR, GRE and DWI and trip lanar T1 pre- and postcontrast MR images of the entire bra in were obtained. Sagittal T1 pre- and postcontrast and co bill T1, T2 and T1 postcontrast MR images of the pituitary gland were obtained. Findings: The ventricles and sulci are age-appropr iate. There is no midline shift. The basilar cisterns are patent. Signal intensity throughout the brain and brainstem is unremarkable. No enhancing lesions are identified. The pituitary gland as slightly prominen t with a convex upward margin. This does extend slightly into t he suprasellar region but does not contact the optic chiasm. The a denohypophysis enhances homogeneously. There is a normal posteri or pituitary bright spot. The infundibulum is normal caliber and midli ne in position. The paranasal sinuses and mastoid air ce lls are clear. Gross orbital abnormality is not appreciated. Impression: 1. Slightly prominent adenohypophysis ca n be a normal finding in females of menstruating age. This does h ave slight suprasellar extension but does not contact the optic chiasm. No focal pituitary lesion is identified. 2. Otherwise unremarkable contrast-enhan adeline brain MRI. Performing Organization Address City/State/ZIP Code Phon e Number [facility] MR ROOM 1 [facility] documented in this encounter Visit Diagnoses Diagnosis VFD (visual field defect) - Primary Visual field defect, unspecified Glaucoma suspect Preglaucoma, unspecified Headache(784.0) Headache documented in this encounter Historical Medications This list may reflect changes made after this encounter. Medication Sig Dispensed Refills Start Date End Date pantoprazole (PROTONIX) 20 Take 40 mg by mouth 0 mg tablet daily. added in this encounter Eye Exam Visual Acuity (Snellen - Linear) Right eye Left eye Dist sc 20/20 -2 20/20 Near cc J1+ J1+ Near vision taken with loose lens +0.75 Tonometry (Applanation, 16:32, WS post dil) Right eye Left eye Pressure 17 14 Pupils Dark React APD Right eye 5 Sluggish None Left eye 5 Sluggish None Visual Carrasquillo Right eye Left eye Full Restrictions Partial outer superior temporal, inferio r temporal, superior nasal, inferior nasal deficiencies Extraocular Movement Right eye Left eye Full, Ortho Full, Ortho Discomfort upon eye movement Neuro/Psych Oriented x3: Yes Mood/Affect: Normal Dilation Both eyes: 0.5% Mydriacyl, 2.5% Phenylep hrine @ 15:54 Amsler Right eye Left eye Normal Normal Color Right eye Left eye AOPIP 10.5/14 11.5/14 Stereo Circles: 80 seconds Slit Lamp Exam Right eye Left eye Lids/Lashes Normal Normal Conjunctiva/Sclera White and quiet; trace stain with White and quiet; trace stain with l.g. l.g. Cornea Clear; TBUT 5; no stain Clear; TBUT 5; n o stain Anterior Chamber Deep and quiet; no cell/flare Deep and q uiet; no cell/flare Iris Round and reactive; no TI Round and reac tive; no TI Lens 1+ Nuclear sclerosis 1+ Nuclear sclerosi s Vitreous Vitreous syneresis Vitreous syneresis Fundus Exam Right eye Left eye Disc P/H, flat,. intact. No Pallor or edema. 1.8mm vert diam P/H, flat, 1.7 mm C/D Ratio 0.3 0.3 Macula Normal Normal Vessels Normal, 3:2 V/A. +SOCIAL ORGANIZATION PROFESSOR Normal, +SOCIAL ORGANIZATION PROFESSOR Periphery Normal Normal
--- OUTSIDE RECORDS SUMMARY | 2021-10-13 17:11 | XMS_ITS | Encounter Summary ---
:1975 Author Organization [facility] Address [address] [place] [address] Care Team Providers Name Role Phone Betty Mo CANCELING MACHINE OPERATOR Primary Care Provider Cassandra Riley MANUFACTURING ENGINEER AUTOMOTIVE Primary Care Provider Ciarra Noriega MANUFACTURING ENGINEER AUTOMOTIVE Primary Care Provider [phone] Encounter Details Date Type Department Care Team Description 11/26/2013 Historical Results [facility] - Santosh Duncan MD Only [facility] - [place] [address] [facility] [address] [place] [address] [phone] Social History Tobacco Use Types Packs/Day Years Used Date Former Smoker Smokeless Tobacco: Never Used Alcohol Use Standard Drinks/Week Comments No 0 (1 standard drink = 0.6 oz pure alcoho l) Sex Assigned at Date Recorded Not on file documented as of this encounter Plan of Treatment Not on filedocumented as of this encounter Procedures Procedure Name Priority Date/Time Associated Diagnosis Comme nts CYTOLOGY Routine 11/26/2013 Results for thi s (NON-GYNECOLOGIC procedure a re in the INCLUDING FLUIDS AND results section. FINE NEEDLE ASPIRATION)- ORDER ONLY documented in this encounter Results CYTOLOGY (NON-GYNECOLOGIC INCLUDING FLUIDS AND FINE NEEDLE ASPIRATION)- ORDER ONLY (11/26/2013) Specimen Narrative [facility] - 014 15:49 EDT Name: TERESA ALVAREZ ? : [birth year] ?Age/Sex: 43/F ?Unit#: [id number] ? Loc: 2S ?Status: DIS IN ? Reg Date: 11/25/13 ? Pt.Phone Number : ? Specimen: [id number] ? JOHANNY ROSARIO: FELICE ?Spec Date:11/26/13 ? Physician Copies: ?Jade Duncan MD ? Tissues: A ?? Bronchial (#1 RML) ? Betty Mo ? B ?? Bronchial (#2 RML) ? C ?? Bronchial (#3 RML) ? D ?? Bronchial ? CPT: 10626 ?? Units: ??1 ? 00074 ? 3 ?? NON VP TRAINING CYTOLOGY DIAGNOSIS A. Bronchoalveolar lavage #1, right midd le lobe: - No malignant cells identified. - Reactive bronchial cells, alveolar mac rophages, and mixed inflammatory cells present. - Differential count: ?Macrophages ? 40% ? Joselin trophils ? 32% ? Lym phocytes ? 24% ? Eos inophils ?3% ? Cil iated Cells ? 1% B. Bronchoalveolar lavage #2, right midd le lobe: - No malignant cells identified. - Reactive bronchial cells, alveolar mac rophages, and mixed inflammatory cells present. - Differential count: ?Macrophages ? 32% ? Joselin trophils ? 33% ? Lym phocytes ? 30% ? Eos inophils ?1% ? Cil iated Cells ? 4% C. Bronchoalveolar lavage #3, right midd le lobe: - No malignant cells identified. - Reactive bronchial cells, alveolar mac rophages, and mixed inflammatory cells present. - Differential count: ?Macrophages ? 40% ? Joselin trophils ? 24% ? Lym phocytes ? 35% ? Eos inophils ?1% ? Cil iated Cells ? 0% D. Bronchial washings: - No malignant cells identified. - Reactive bronchial cells, alveolar mac rophages, and mixed inflammatory cells present. Patient: TERESA ALVAREZ ? #[id number] ? (Continued) Specimen: [id number] ? Rec eived: 11/26/13 ?(Continued) ? SPECIMEN DESCRIPTION ? A. ??25 mL of cloudy mucoid fluid we re received and 15 mL ?? processed by selective cellular enha ncement technique. ? B. ??20 mL of cloudy mucoid fluid we re received and 10 mL ?? processed by selective cellular enha ncement technique. ? C. ??15 mL of cloudy mucoid fluid we re received and 10 mL ?? processed by selective cellular enha ncement technique. ? D. ??20 mL of cloudy mucoid fluid we re received and 15 mL ?? processed by selective cellular enha ncement technique. Signed ____(signature on file)____ Sara Farrell M.D. 11/26/13 By the signature above, the attending ph ysician certifies that he/she has personally conducted a gross and/or microscopic exa mination of the described specimens and rendered or confirmed the above diagnosi s. Test Performed by [facility], [address] [place] [id number] Order Picker: Sara Vargas MD PHD Performing Organization Address City/State/ZIP Code Phon e Number [facility] [address] [place], [place] [id number] [place] [address] LAB documented in this encounter Visit Diagnoses Not on filedocumented in this encounter Care Teams Wagon Winder Relationship Specialty Start Date End Date Betty Mo FNP PCP - General 03/20/12 02/28/15 [address] [place] [address] Cassandra Riley NP PCP - General 03/01/15 03/27/15 4 [place], [place] [id number] Ciarra Noriega NP PCP - General 03/28/15 documented as of this encounter
--- OUTSIDE RECORDS SUMMARY | 2021-10-13 17:11 | XMS_ITS | Encounter Summary ---
:1975 Author Organization [facility] Address [address] [place] [address] Care Team Providers Name Role Phone Prudencio Stevens MD Primary Care Provider Unavailable Betty Mo MERCHANDISING COORDINATOR Primary Care Provider Cassandra Riley OPTIMIZATION MANAGER Primary Care Provider Ciarra Noriega NP Primary Care Provider [phone] Encounter Details Date Type Department Care Team Description 10/29/2002 Hospital Encounter [facility] - Nathan Fry MD [id number] [place] [address] (Wo rk) Social History Tobacco Use Types [...] Date/Time Associated Diagnosis Comme nts CYTOPATHOLOGY Routine 10/29/2002 0:00 EDT Results for this procedure are i n the results section . documented in this encounter Results CYTOPATHOLOGY (10/29/2002 0:00 EDT) Pathology Report: CYTOPATHOLOGY REPORT [facility] Reports generated via electronic interface contain kristin ginal data; however they are lacking the format of the original re port. Caution should be taken when reading/interpreting unfo rmatted reports. Name: ? TERESA ALVAREZ ? Accession #: ? [id number] : ? 1975 (Age: 26) ??F ?Collect Date: ? 10/20 Location: ? [facility] ? Receive Date : ? 11/02/2002 Provider: ?NATHAN FRY MD Copy to: ? Specimen/Source: ?ThinPrep Pap Test, Cervix/ Endocervix Last Menstrual Period: ? 10/07 Hormonal/Contraceptive Status: ? Oral contraceptives Tubal ligation Treatment History: ? LEEP: 10/31/00 Other: ? Additional clinical information: this is repeat pap ? SPECIMEN ADEQUACY ? Satisfactory for Evaluation - transformation zone component present GENERAL CATEGORIZATION ? Negative for Intraepithelial Lesion or Malignan cy INTERPRETATION ? Shift in annelise present suggestive of bacterial vaginosis. ? Document reviewed and electronically signed by: ? FRANK Porter(ASCP) ? Report Date: ??11/04/2002 12:57 End of Report Specimen Performing Organization Address City/State/ZIP Code Phon e Number [facility] [address] [place] [address] SERVICES [facility] [address] [place] [address] documented in this encounter Visit Diagnoses Not on filedocumented in this encounter Care Teams Precise Winder Relationship Specialty Start Date End Date Prudencio Stevens MD PCP - General 02/26/12 02/26/12 [address] [place] [address] Betty Mo FNP PCP - General 03/20/12 02/28/15 [address] [place] [address] Cassandra Riley NP PCP - General 03/01/15 03/27/15 [address] [place] [address] Ciarra Noriega NP PCP - General 03/28/15 documented as of this encounter
--- OUTSIDE RECORDS SUMMARY | 2021-10-13 17:11 | XMS_ITS | Encounter Summary ---
:1975 Author Organization [facility] Address [address] [place] [address] Care Team Providers Name Role Phone Unavailable Primary Care Provider Unavailable Encounter Details Date Type Department Care Team Description 01/15/2007 Results Only [facility] - Kim prescott, Provider, conversion [address] [place] [address] Social History Tobacco Use Types Packs/Day Years Used Date Never Assessed Sex Assigned at Date Recorded Not on file documented as of this encounter Plan of Treatment Not on filedocumented as of this encounter Procedures Procedure Name Priority Date/Time Associated Diagnosis Comme nts FSH Routine 01/15/2007 10:24 EDT Results for this procedure are i n the results section . documented in this encounter Results FSH (01/15/2007 10:24 EDT) Pathologist Sig nature FSH 50.3 mIU/ml [facility] Comment: Follicular: 2-11 Mid-Cycle Peak: 3.4-35 Luteal: 1-9 Postmenopausal: 25-120 Specimen Performing Organization Address City/State/ZIP Code Phon e Number [facility] [address] [place] [address] SERVICES [facility] [address] [place] [address] documented in this encounter Visit Diagnoses Not on filedocumented in this encounter
--- OUTSIDE RECORDS SUMMARY | 2021-10-13 17:11 | XMS_ITS | Encounter Summary ---
:1975 Author Organization [facility] Address [address] [place] [address] Care Team Providers Name Role Phone Prudencio Stevens MD Primary Care Provider Unavailable Betty Mo DESIGN VERIFICATION ENGINEER Primary Care Provider Cassandra Riley ANIMAL TRAPPER Primary Care Provider Ciarra Noriega ANIMAL TRAPPER Primary Care Provider [phone] Encounter Details Date Type Department Care Team Description 04/06/2002 Hospital Encounter [facility] - Nathan Fry MD [address] [place] [address] Other Unknown, Provider, [address] [place], [place] [id number] Social History Tobacco Use Types Packs/Day Years [...] Date/Time Associated Diagnosis Comme nts CYTOPATHOLOGY Routine 04/06/2002 0:00 EST Results for this procedure are i n the results section . documented in this encounter Results CYTOPATHOLOGY (04/06/2002 0:00 EST) Pathology Report: CYTOPATHOLOGY REPORT [facility] Reports generated via electronic interface contain kristin ginal data; however they are lacking the format of the original re port. Caution should be taken when reading/interpreting unfo rmatted reports. Name: ? TERESA ALVAREZ ? Accession #: ? [id number] : ? 1975 (Age: 26) ??F ?Collect Date: ? 03/22 Location: ? [facility] ? Receive Date : ? 04/09/2002 Provider: ?NATHAN FRY MD Copy to: ? Specimen/Source: ?ThinPrep Pap Test, Cervix Last Menstrual Period: ? Treatment History: ? LEEP: 10/20 ? SPECIMEN ADEQUACY ? Satisfactory for Evaluation - transformation zone component present GENERAL CATEGORIZATION ? Negative for Intraepithelial Lesion or Malignan cy INTERPRETATION ? Shift in annelise present suggestive of bacterial vaginosis. ? Document reviewed and electronically signed by: ? FRANK De Guzman(ASCP) ? Report Date: ??04/09/2002 13:38 End of Report Specimen Performing Organization Address City/State/ZIP Code Phon e Number [facility] [address] [place] [address] SERVICES [facility] [address] [place] [address] documented in this encounter Visit Diagnoses Not on filedocumented in this encounter Care Teams In Process Inspector Relationship Specialty Start Date End Date Prudencio Stevens MD PCP - General 02/26/12 02/26/12 [address] [place] [address] Betty Mo FNP PCP - General 03/20/12 02/28/15 [address] [place] [address] Cassandra Riley, LULA PCP - General 03/01/15 03/27/15 [address] [place] [address] Ciarra Noriega NP PCP - General 03/28/15 documented as of this encounter
--- OUTSIDE RECORDS SUMMARY | 2021-10-13 17:11 | XMS_ITS | Encounter Summary ---
:1975 Author Organization [facility] Address [address] [place] [address] Care Team Providers Name Role Phone Cassandra Riley NP Primary Care Provider Encounter Details Date Type Department Care Team Description 03/07/2015 Abstract [facility] Charles Loja MD Nephrology - S Prosp ect [address] [place], [place] [id number] [place] [phone] (Wo rk) Social History Tobacco Use [...] Associated Diagnosis Comme nts URINALYSIS WITH Routine 02/04/2015 Results for this MICROSCOPIC IF POSITIVE proc edure are in the results section . COMPLETE BLOOD COUNT Routine 02/04/2015 Results for this procedure are i n the results section . COMPREHENSIVE METABOLIC Routine 02/04/2015 Resu lts for this PANEL (CMP) procedure are i n the results section . COMPLETE BLOOD COUNT Routine 12/02/2014 Results for this procedure are i n the results section . COMPLETE BLOOD COUNT Routine 11/05/2014 Results for this procedure are i n the results section . documented in this encounter Results URINALYSIS WITH REFLEX MICROSCOPIC (02/04/2015) Pathologist Sig nature Color UA, External straw [facility] Clarity UA, External clear [facility] Glucose UA, External neg [facility] Bilirubin UA, External neg [facility] B Ketones UA, External neg [facility] Specific [place] UA, <=1.005 [facility] External Blood UA, External large [facility] pH UA, External 6.5 [facility] Protein UA, External 30 [facility] Urobilinogen UA, External 0.2 [facility] Nitrite UA, External neg [facility] Leukocyte Esterase UA, small [facility] External Specimen Urine (substance) Performing Organization Address City/[facility]/ZIP Code Phon e Number [facility] HEMAGRAM (02/04/2015) Pathologist Sig nature HCT, External 47 [facility] MCH, External [facility] MCV, External [facility] MCHC, External [facility] Hemoglobin, External 15.1 [facility] WBC, External 7.5 [facility] RBC, External 4.93 [facility] PLT, External 306 [facility] RDW-CV, External [facility] Specimen Blood specimen (specimen) Performing Organization Address City/[facility] Code Phon e Number [facility] COMPREHENSIVE METABOLIC PANEL (CMP) (02/04/2015) Pathologist Sig nature GFR, Calculated, External 51 [facility] Glucose, Serum, External 96 [facility] Albumin, External 4.6 [facility] Total Alkaline Phosphatase, 94 [facility] External ALT, External 23 [facility] AST, External 17 [facility] BUN, External 19 [facility] Calculated Calcium, [facility] External Calcium, External 9.7 [facility] Chloride, External 101 [facility] CO2, External 31 [facility] Creatinine, External 1.16 [facility] Fasting?, External [facility] Potassium, External 4.4 [facility] Sodium, External 139 [facility] Total Protein, External 8.7 [facility] AB Bilirubin, Total, External 1.4 [facility] Specimen Blood specimen (specimen) Performing Organization Address City/[facility]/ZIP Code Phon e Number [facility] HEMAGRAM (12/02/2014) Pathologist Sig nature HCT, External 43.9 [facility] MCH, External [facility] MCV, External [facility] MCHC, External [facility] Hemoglobin, External 14.5 [facility] WBC, External 6.43 [facility] RBC, External 4.62 [facility] PLT, External 295 [facility] RDW-CV, External [facility] Specimen Blood specimen (specimen) Performing Organization Address [facility]/ZIP Code Phon e Number [facility] HEMAGRAM (11/05/2014) Pathologist Sig nature HCT, External 44.7 [facility] MCH, External [facility] MCV, External [facility] MCHC, External [facility] Hemoglobin, External 15.0 [facility] WBC, External 7.07 [facility] RBC, External 4.72 [facility] PLT, External 281 [facility] RDW-CV, External [facility] Specimen Blood specimen (specimen) Performing Organization Address [facility] Phon e Number [facility] documented in this encounter Visit Diagnoses Not on filedocumented in this encounter Historical Medications This list may reflect changes made after this encounter. Medication Sig Dispensed Refills Start Date End Date albuterol 90 Inhale 2 Puffs as 0 mcg/actuation inhaler directed every 4 hours as needed for Wheezing loratadine (CLARITIN) 10 Take 10 mg by mouth 0 mg tablet daily added in this encounter Care Teams Surtass Analyst Relationship Specialty Start Date End Date Cassandra iRley NP PCP - General 03/01/15 03/27/15 [address] [place] [address] documented as of this encounter
[2021-10-13 21:04] LABS: Anion Gap 9.6 mmol/L (3-11); BUN 21 mg/dL (7-18); CO2 30.4 mmol/L (21.0-32.0); CREATININE 1.4 mg/dL (0.55-1.02); Calcium 9.8 mg/dL (8.5-10.1); Chloride 96 mmol/L (98-107); Estimated GFR 40.31 (mL/min/1.73m2); Glucose 96 mg/dL (74-106); Sodium 136 mmol/L (136-145)
== END 2021-10-13 17:08 | disposition home or self-care (01) ==
LOC: NCHCN 17:07
PROVIDERS: PCP Registered Nurse; Visit Provider Registered Nurse
DX: R79.89 Other specified abnormal findings of blood chemistry (principal); I10 Essential (primary) hypertension
CPT/HCPCS: 80048

== ENCOUNTER 2021-10-31 16:21 | Outpatient (REF) | payer MEDICAID, SELFPAY ==
[2021-10-31 14:56] LABS: Bilirubin Negative (Negative); Blood Negative (Negative); Clarity Clear (Clear); Glucose Negative (Negative); Ketones Negative (Negative); Leukocyte Esterase Negative (Negative); Nitrite Negative (Negative); Specific Gravity 1.015 (1.005-1.025); Urobilinogen 0.2 EU/dL (Up TO 0.2); pH 7.5 (5-8)
[2021-10-31 15:23] LABS: Abs Immature Grans 0.02 10^3/uL (0.0-0.06); Absolute Basophil Count 0.03 10^3/uL (0.0-0.2); Absolute Eosinophil Count 0.18 10^3/uL (0.0-0.7); Absolute Lymphocyte Count 2.37 10^3/uL (1.2-3.4); Absolute Monocyte Count 0.42 10^3/uL (0.1-0.8); Basophils % 0.3; Eosinophils % 2.1; HCT 37.9 % (36.0-46.0); HGB 12.9 g/dL (11.2-15.7); Immature Grans % 0.2; Lymphocytes % 27.2; MCH 31.2 pg (27.0-33.0); MCV 92 fL (80-95); MPV 11.3 fL (8.0-11.0); Monocytes % 4.8; Neutrophils % 65.4; Platelet Count 354 10^3/uL (130-400); RBC 4.14 10^6/uL (3.93-5.22); RDW 12.4 % (11.7-14.6); RDW-SD 41.1 fL; WBC 8.72 10^3/uL (4.4-10.8)
[2021-10-31 15:49] LABS: Bacteria Negative HPF (Negative); C & S Indicated? No; Crystals Negative HPF (Negative); Epithelial Cells Few HPF (Negative); Mucus Negative (Negative); RBC Negative HPF (0-2); WBC 0-2 HPF (0-5)
[2021-10-31 15:57] LABS: ALT 28 U/L (14-59); AST 20 U/L (15-37); Alkaline Phosphatase 115 U/L (46-116); Anion Gap 8.9 mmol/L (3-11); BUN 13 mg/dL (7-18); Bilirubin, Total 1.3 mg/dL (0.2-1.0); CO2 34.1 mmol/L (21.0-32.0); CREATININE 1.2 mg/dL (0.55-1.02); Calcium 9.4 mg/dL (8.5-10.1); Calculated LDL 71 mg/dL (<100); Chloride 100 mmol/L (98-107); Cholesterol 145 mg/dL (<200); Estimated GFR 48.15 (mL/min/1.73m2); Glucose 106 mg/dL (74-106); HDL Cholesterol 45 mg/dL (40-60); Potassium 3.4 mmol/L (3.5-5.1); Sodium 143 mmol/L (136-145); TSH 0.88 uIU/mL (0.36-3.74); Total Protein 7.8 g/dL (6.4-8.2); Triglyceride 148 mg/dL (<150)
== END 2021-10-31 16:22 | disposition home or self-care (01) ==
LOC: NCHCN 16:21
PROVIDERS: PCP Registered Nurse; Visit Provider Registered Nurse
DX: E03.9 Hypothyroidism, unspecified (principal); I10 Essential (primary) hypertension; E78.2 Mixed hyperlipidemia; R79.89 Other specified abnormal findings of blood chemistry; Z83.3 Family history of diabetes mellitus
CPT/HCPCS: 80053; 80061; 81003; 81015; 84443; 85025

== ENCOUNTER 2021-12-27 21:40 | Outpatient (REF) | payer MEDICAID, SELFPAY ==
[2021-12-27 22:33] LABS: Anion Gap 9.1 mmol/L (3-11); BUN 19 mg/dL (7-18); CO2 27.9 mmol/L (21.0-32.0); CREATININE 1.1 mg/dL (0.55-1.02); Calcium 8.8 mg/dL (8.5-10.1); Chloride 101 mmol/L (98-107); Estimated GFR 61.98 (mL/min/1.73m2); Glucose 118 mg/dL (74-106); Potassium 3.9 mmol/L (3.5-5.1); Sodium 138 mmol/L (136-145)
== END 2021-12-27 21:41 | disposition home or self-care (01) ==
LOC: NCHCN 21:40
PROVIDERS: PCP Registered Nurse; Visit Provider Registered Nurse
DX: I10 Essential (primary) hypertension (principal)
CPT/HCPCS: 80048

== ENCOUNTER 2022-03-28 15:26 | Outpatient (REF) | payer MEDICAID, SELFPAY ==
[2022-03-28 15:34] LABS: Anion Gap 9.9 mmol/L (3-11); BUN 22 mg/dL (7-18); CO2 31.1 mmol/L (21.0-32.0); CREATININE 1.1 mg/dL (0.55-1.02); Calcium 9.7 mg/dL (8.5-10.1); Chloride 102 mmol/L (98-107); Estimated GFR 61.98 (mL/min/1.73m2); Glucose 114 mg/dL (74-106); Potassium 4.5 mmol/L (3.5-5.1); Sodium 143 mmol/L (136-145); TSH 2.46 uIU/mL (0.36-3.74)
[2022-03-28 16:59] LABS: Hemoglobin A1C 6.1 % (<5.7)
== END 2022-03-28 15:27 | disposition home or self-care (01) ==
LOC: NCHCN 15:26
PROVIDERS: PCP Registered Nurse; Visit Provider Registered Nurse
DX: I10 Essential (primary) hypertension (principal); E03.9 Hypothyroidism, unspecified; Z83.3 Family history of diabetes mellitus
CPT/HCPCS: 80048; 83036; 84443

== ENCOUNTER 2022-04-09 16:51 | Emergency (ER) | payer MEDICAID, SELFPAY ==
--- NOTE | 2022-04-09 16:45 | DI.RAD_ITS ---
Exam(s) XR KNEE LT 3V AP,LAT,STEVAN EXAM: XR KNEE LT 3V AP,LAT,STEVAN CLINICAL HISTORY: knee pain w/o known injury. TECHNIQUE: 2D digital imaging was performed. COMPARISON: No exams were available for comparison FINDINGS: Four views: No evidence fracture or joint effusion. No degenerative changes. Bone density normal. No osseous l esions. IMPRESSION: Significant osseous findings. DATA REPOSITORY: RADIATION DOSE DELIVERED:
[2022-04-09 16:52] VITALS: BP 123/70; PULSE 88; RESP 22; TEMP 36.5; O2SAT 93
[2022-04-09] MEDS: Ketorolac 30 MG/ML VIAL IM (17:10)
[2022-04-09] MEDS: Acetaminophen 500 MG TAB 1000 MG PO (17:10)
[2022-04-09] MEDS: Lidocaine 5% Patch 1 PATCH TP (17:25)
--- NOTE | 2022-04-09 17:31 | NUR.NOTE ---
Nursing Note: As this nurse walked in to patient's room, patient using cell phone, not yelling out in pain. As soon as she saw this nurse she put her phone down and started yelling out. All pain medications given per provider orders.
--- NOTE | 2022-04-09 17:36 | W.ED.GENAD ---
Discharge Plan Disposition Patient Disposition: Home Condition: Good Discharge Details Clinical Impression: Acute pain of left knee Primary Care Provider: Nataly Dahl ED Provider: Jeremiah Spears Home Meds and New Rx's Prescriptions: New lidocaine [Lidoderm] 5 % adhesive patch,medicated 1 patch Topical Q24H Qty: 15 0RF No Action atorvastatin 80 mg Tablet 80 mg PO DAILY lisinopril 20 mg Tablet 20 mg PO DAILY levothyroxine 150 mcg Tablet 150 mcg PO DAILY hydrochlorothiazide 25 mg Tablet 25 mg PO DAILY ezetimibe 10 mg Tablet 10 mg PO DAILY omeprazole 20 mg Tablet,Delayed Release (Dr/Ec) 20 mg PO DAILY Discharge Instructions Instructions: Knee Pain (ED) Additional Instructions: At this time your x-ray is negative for any evidence of fracture or other significant abnormality. There is no evidence of blood clots on your exam. Please take Tylenol and Motrin as needed for pain. Please apply the Lidoderm patches as directed to help with pain. Please use the knee brace and the crutches as needed to help with pain. Please follow closely with your primary care provider for reassessment. If you have continued pain after the treatments and staying off of that for the next week then you may need repeat imaging on an outpatient nonemergent basis. If you notice any worsening of your symptoms, or any new symptoms such as vomiting, diarrhea, fever, chills, shortness of breath, chest pain, numbness, weakness, or fainting , please return immediately to the emergency department for reevaluation. Please follow up with your primary care provider as soon as possible for reassessment and reevaluation. As always, it was a pleasure participating in your medical care today. Referrals: Nataly Dahl, TRAVELING INVENTORY ASSOCIATE [Primary Care Provider] - Discharge Data Discharge Date/Time-TO BE ENTERED AT DEPARTURE: 04/09/22 19:16 Medical Decision Making This is a 46-year-old female who is new to our emergency department who denies any past medical history, but who is med list would suggest high cholesterol, hypertension, thyroid dysfunction and reflux, who presents via EMS for evaluation of left knee pain. Patient states that she stood up out of bed at around 1 in the afternoon, and has had left knee pain ever since. She states that the pain goes from her knee travel slightly proximally to the mid thigh. She describes it as stabbing. Worse with movement. She has not taken anything for the pain. She does live with multiple family members. She denies any history of blood clot, trauma, falls, atypical twisting motion, hearing a popping sound, fever, chills, IV drug use, swelling, tingling, burning, numbness, or other complaints. No radiation of pain otherwise. Exam is notably unremarkable. Patient describes pain in the slight proximal and lateral component of the knee but is not focal at all. She also describes some radiation traveling proximally but is also not able to give any evidence of a focality component. There is no swelling, no redness, no edema, no swelling over the popliteal bursa. No evidence of infection to suggest cellulitis or infectious bursitis. No evidence of trauma or laxity. Dorsalis pedis, posterior tibial, and femoral pulses are all normal. Bedside ultrasound shows no gross evidence of large femoral clot. Bedside ultrasound shows no evidence of hematoma in the muscle bellies, or other abnormality. When the patient came through the doors in the emergency department she was notably crying and moaning. I did asked the EMS crew and they stated that for the entirety of the 45-minute drive that they had with her she was resting comfortably and in no distress whatsoever. Symptoms are very atypical, and I am not certain as to the exact etiology. Differential includes muscle spasm that has resolved, unlikely osseous injury, or potential referred nerve pain. We will apply a Lidoderm patch, given NSAIDs, get an x-ray, monitor closely and reassess. 9 PM X-ray is negative for evidence of abnormality. Repeat exam continues to show no abnormality to suggest necrotizing fasciitis, vascular injury, osseous fracture, infection, significant nerve impingement to suggest cauda equina syndrome or peripheral neuropathy, or other significant abnormality. Patient demonstrates quite the atypical presentation, as she is seen resting comfortably in bed, actively texting on her phone, with a heart rate of 80, however once myself or nursing enters the room we noticed a very sudden change in symptomatology and she begins profusely crying to the point that there is some difficulty speaking with us. I had a lengthy discussion with her about her symptoms, the findings, and my differential. At this time she demonstrates no evidence of an acute life-threatening etiology, the patient is stable for discharge. Nursing staff reports that the patient when given her discharge paperwork stood up without any difficulty or challenge, and proceeded to quickly without any deficit or disability was able to walk out of the department well without any signs of distress, crying, limp, or complaint of pain. Patient's varied and oscillating symptomatology and the clear physical exam objective findings as well as the objective findings noted at time of discharge continue to support lack of acute life-threatening etiology at this time. Patient will be given crutches and a hinged knee brace to go home with as needed for support. I have extensively reviewed the treatment plan and discharge instructions with the patient. I have addressed all patient concerns at this time. The patient was made aware of what symptoms to monitor for that would warrant a return to the emergency department. Discussed the plan with the patient, they demonstrate verbal understanding and agreement with our assessment and plan at this time. The documentation in this chart was dictated using [employer] dictation software. Please excuse any dictation errors. FINDINGS: Bones/joints: Normal. Soft tissues: Normal. IMPRESSION: No acute findings. Thank you for allowing us to participate in the care of your patient. Dictated and Authenticated by: Cecil Barrett MD 04/09/2022 6:00 PM Eastern Time ([place] & [place]) HPI General Date/Time Provider Initiated Documentation: 04/09/22 16:58. HPI Narrative: This is a 46-year-old female who is new to our emergency department who denies any past medical history, but who is med list would suggest high cholesterol, hypertension, thyroid dysfunction and reflux, who presents via EMS for evaluation of left knee pain. Patient states that she stood up out of bed at around 1 in the afternoon, and has had left knee pain ever since. She states that the pain goes from her knee travel slightly proximally to the mid thigh. She describes it as stabbing. Worse with movement. She has not taken anything for the pain. She does live with multiple family members. She denies any history of blood clot, trauma, falls, atypical twisting motion, hearing a popping sound, fever, chills, IV drug use, swelling, tingling, burning, numbness, or other complaints. No radiation of pain otherwise. Related Data Home Medications Medication Instructions Recorded Confirmed atorvastatin 80 mg tablet 80 mg PO DAILY 04/09/22 04/09/22 ezetimibe 10 mg tablet 10 mg PO DAILY 04/09/22 04/09/22 hydrochlorothiazide 25 mg tablet 25 mg PO DAILY 04/09/22 04/09/22 levothyroxine 150 mcg tablet 150 mcg PO DAILY 04/09/22 04/09/22 lidocaine 5 % topical patch 1 patch topical Q24H #15 ea 04/09/22 (Lidoderm) lisinopril 20 mg tablet 20 mg PO DAILY 04/09/22 04/09/22 omeprazole 20 mg tablet,delayed 20 mg PO DAILY 04/09/22 04/09/22 release Previous Rx's Medication Instructions Recorded lidocaine 5 % topical patch 1 patch topical Q24H #15 ea 04/09/22 (Lidoderm) Allergies Allergy/AdvReac Type Severity Reaction Status Date / Time No Known Allergies Allergy Unverified 04/09/22 16:59 General Stated Complaint: Orthopedic LAWRENCE: 3 Review of Systems All systems reviewed & are unremarkable except as noted in HPI and below PFSH All Active Problems Acute pain of left knee (Acute) Social History Smoking/Tobacco Use Status: Former Tobacco Use Smoking risk assessment performed?: Yes Alcohol Intake: former Drug use: Never Substance use type: does not use Do you feel safe at home: Yes Do you feel safe in your relationship?: Yes Exam Narrative Exam Narrative: 1.Const: Well-nourished, Well-developed, appearing stated age 2.Eyes: PERRL, no conjunctival injection, and symmetrical lids. 3.ENT: Atraumatic external nose and ears. Moist MM. Neck: Symmetric, trachea midline, No thyromegaly. 4.CVS: +S1/S2, No murmurs or gallops. Peripheral pulses 2+ and equal in all extremities. Brisk capillary refill in all extremities. 5.RESP: Unlabored respiratory effort. Clear to auscultation bilaterally. No wheezes rales or rhonchi 6.GI: Soft, Nontender/Nondistended, No hepatosplenomegaly. No guarding or rebound. 7.MSK: Normocephalic/Atraumatic, Extremities w/o deformity. No cyanosis or clubbing, Normal movement of all extremities. Patient demonstrates normal movement of the left lower extremity. Normal strength for hip flexion, extension, knee flexion, knee extension. Patient demonstrates good dorsiflexion of the great toe. Good plantar and dorsiflexion of the foot. The knee is stable to varus, valgus, and anterior drawer stress. No deformity. Patellar grind test is negative. Davy test is negative for pain. Patient is able to walk without difficulty. No edema or warmth to the joint. No ttp to the patella, tibial plateau, or fibular head. 8.Skin: Warm, Dry. No rashes or lesions. 9.Neuro: specialty molder II-XII grossly intact. Sensation grossly intact, no focal neurologic deficits. 10.Psych: (AAO) x3. Appropriate mood and affect Course Vital Signs Vital signs: Vital Signs Temperature 36.5 C 04/09/22 16:52 Pulse 88 04/09/22 16:52 Respiratory Rate 04/09/22 16:52 Blood Pressure 123/70 04/09/22 16:52 Pulse Oximetry 93 04/09/22 16:52 Temperature 36.5 C 04/09/22 16:52 Pulse 88 04/09/22 16:52 Respiratory Rate 22 04/09/22 16:52 Respiratory Effort 04/09/22 17:26 Blood Pressure 123/70 04/09/22 16:52 Pulse Oximetry 93 04/09/22 16:52 Oxygen Delivery Method Room Air 04/09/22 16:52 Oxygen Flow Rate 0 04/09/22 16:52 Pain Level 10 04/09/22 17:10
--- NOTE | 2022-04-09 18:01 | DI.VRAD_ITS ---
PROCEDURE INFORMATION: Exam: XR Left Knee Exam date and time: 04/09/2022 5:39 PM Age: 46 years old Clinical indication: Other: Knee pain w/o known injury TECHNIQUE: Imaging protocol: Radiologic exam of the Left knee. Views: 3 views. COMPARISON: No relevant prior studies available. FINDINGS: Bones/joints: Normal. Soft tissues: Normal. IMPRESSION: No acute findings. Dictated and Authenticated by: Cecil Barrett MD. Ordering:GILBERTO Daniels MD
[2022-04-09 19:00] VITALS: BP 151/89; PULSE 85; RESP 20; TEMP 36.7; O2SAT 99
--- NOTE | 2022-04-10 11:28 | NUR.NOTE ---
Nursing Note: Accessed chart for [facility] billing purposes.
== END 2022-04-09 19:16 | disposition home or self-care (01) ==
LOC: ER 19:29
PROVIDERS: Emergency Provider Student in an Organized Health Care Education/Training Program; PCP Registered Nurse
DX: M25.562 Pain in left knee (principal); I10 Essential (primary) hypertension; Z79.899 Other long term (current) drug therapy
CPT/HCPCS: 73562; 96372; 99284; J1885

== ENCOUNTER 2022-11-15 17:28 | Outpatient (REF) | payer MEDICAID, SELFPAY ==
[2022-11-15 20:48] LABS: Anion Gap 6.4 mmol/L (3-11); BUN 28 mg/dL (7-18); CO2 29.6 mmol/L (21.0-32.0); CREATININE 1.3 mg/dL (0.55-1.02); Calcium 9.6 mg/dL (8.5-10.1); Chloride 103 mmol/L (98-107); Estimated GFR 50.72 (mL/min/1.73m2); Glucose 99 mg/dL (74-106); Sodium 139 mmol/L (136-145)
[2022-11-15 20:55] LABS: Hemoglobin A1C 5.9 % (<5.7)
[2022-11-15 21:11] LABS: TSH 139.53 uIU/mL (0.36-3.74)
== END 2022-11-15 17:29 | disposition home or self-care (01) ==
LOC: NCHCN 17:28
PROVIDERS: PCP Registered Nurse; Visit Provider Registered Nurse
DX: Z83.3 Family history of diabetes mellitus (principal); E03.9 Hypothyroidism, unspecified; R79.89 Other specified abnormal findings of blood chemistry
CPT/HCPCS: 80048; 83036; 84443

== ENCOUNTER 2023-09-04 10:11 | Outpatient (REF) | payer MEDICAID, SELFPAY ==
[2023-09-04 14:48] LABS: HCT 44.8 % (36.0-46.0); HGB 14.6 g/dL (11.2-15.7); MCH 30.8 pg (27.0-33.0); MCHC 32.6 % (32.0-36.0); MCV 95 fL (80-95); MPV 11.2 fL (8.0-11.0); Platelet Count 390 10^3/uL (130-400); RBC 4.74 10^6/uL (3.93-5.22); RDW 13.9 % (11.7-14.6); RDW-SD 48.2 fL; WBC 8.27 10^3/uL (4.4-10.8)
[2023-09-04 15:29] LABS: Hemoglobin A1C 6.2 % (<5.7)
[2023-09-04 15:31] LABS: ALT 43 U/L (14-59); AST 30 U/L (15-37); Albumin 4.7 g/dL (3.4-5.0); Alkaline Phosphatase 109 U/L (46-116); BUN 19 mg/dL (7-18); Bilirubin, Total 0.7 mg/dL (0.2-1.0); CREATININE 1.4 mg/dL (0.55-1.02); Chloride 100 mmol/L (98-107); Estimated GFR 46.12 (mL/min/1.73m2); Glucose 101 mg/dL (74-106); HDL Cholesterol 51 mg/dL (40-60); Potassium 4.7 mmol/L (3.5-5.1); Sodium 140 mmol/L (136-145); Total Protein 8.9 g/dL (6.4-8.2); Triglyceride 208 mg/dL (<150)
[2023-09-04 16:21] LABS: Calculated LDL 386 mg/dL (<100)
[2023-09-04 16:22] LABS: Cholesterol 478 mg/dL (<200); TSH 141.27 uIU/Ml (0.36-3.74)
== END 2023-09-04 10:12 | disposition home or self-care (01) ==
LOC: NCHCN 10:11
PROVIDERS: PCP Registered Nurse; Visit Provider Family Medicine
DX: I10 Essential (primary) hypertension (principal); E78.2 Mixed hyperlipidemia; R73.03 Prediabetes; Z13.0 Encounter for screening for diseases of the blood and blood-forming organs and certain disorders involving the immune mechanism
CPT/HCPCS: 80053; 80061; 85027; 83036; 84443

== ENCOUNTER 2023-11-13 08:05 | Outpatient (REF) | payer MEDICAID, SELFPAY ==
[2023-11-13 15:30] LABS: TSH 1.12 uIU/Ml (0.36-3.74)
== END 2023-11-13 08:06 | disposition home or self-care (01) ==
LOC: NCHCN 08:05
PROVIDERS: PCP Registered Nurse; Visit Provider Family Medicine
DX: E03.9 Hypothyroidism, unspecified (principal)
CPT/HCPCS: 84443

== ENCOUNTER 2024-06-02 13:18 | Outpatient (REF) | payer MEDICAID, SELFPAY ==
[2024-06-02 14:44] LABS: TSH 148.68 uIU/mL (0.36-3.74)
[2024-06-02 16:53] LABS: FREE T4 0.37 ng/dL (0.76-1.46)
[2024-06-03 18:57] LABS: T3, Total 98 ng/dL (97-169)
== END 2024-06-02 13:19 | disposition home or self-care (01) ==
LOC: NCHCN 13:18
PROVIDERS: PCP Registered Nurse; Visit Provider Family Medicine
DX: E03.9 Hypothyroidism, unspecified (principal)
CPT/HCPCS: 84439; 84443; 84480

== ENCOUNTER 2024-07-20 12:08 | Outpatient (REF) | payer MEDICAID, SELFPAY ==
[2024-07-20 15:41] LABS: TSH 35.75 uIU/mL (0.36-3.74)
== END 2024-07-20 12:09 | disposition home or self-care (01) ==
LOC: NCHCN 12:08
PROVIDERS: PCP Registered Nurse; Visit Provider Family Medicine
DX: E03.9 Hypothyroidism, unspecified (principal)
CPT/HCPCS: 84443

== ENCOUNTER 2024-09-07 12:51 | Outpatient (REF) | payer MEDICAID, SELFPAY ==
[2024-09-07 15:24] LABS: TSH 5.18 uIU/mL (0.36-3.74)
== END 2024-09-07 12:52 | disposition home or self-care (01) ==
LOC: NCHCN 12:51
PROVIDERS: PCP Registered Nurse; Visit Provider Family Medicine
DX: E03.9 Hypothyroidism, unspecified (principal)
CPT/HCPCS: 84443

== ENCOUNTER 2024-12-02 14:40 | Outpatient (REF) | payer MEDICAID, SELFPAY ==
[2024-12-02 15:32] LABS: ALT 60 U/L (14-59); AST 30 U/L (15-37); Albumin 4.0 g/dL (3.4-5.0); Alkaline Phosphatase 115 U/L (46-116); Anion Gap 6.6 mmol/L (3-11); BUN 22 mg/dL (7-18); Bilirubin, Total 0.6 mg/dL (0.2-1.0); CO2 28.4 mmol/L (21.0-32.0); Calcium 9.8 mg/dL (8.5-10.1); Calculated LDL 58 mg/dL (<100); Chloride 103 mmol/L (98-107); Cholesterol 123 mg/dL (<200); Estimated GFR 68.21 (mL/min/1.73m2); Glucose 116 mg/dL (74-106); HDL Cholesterol 47 mg/dL (>or=50); Potassium 4.6 mmol/L (3.5-5.1); Sodium 138 mmol/L (136-145); Total Protein 8.1 g/dL (6.4-8.2); Triglyceride 91 mg/dL (<150)
[2024-12-02 16:04] LABS: Hemoglobin A1C 5.8 % (<5.7)
[2024-12-02 17:09] LABS: TSH 0.11 uIU/mL (0.36-3.74)
== END 2024-12-02 14:41 | disposition home or self-care (01) ==
LOC: NCHCN 14:40
PROVIDERS: Student in an Organized Health Care Education/Training Program; PCP Registered Nurse; Visit Provider Family Medicine
DX: E06.3 Autoimmune thyroiditis (principal)
CPT/HCPCS: 80053; 80061; 83036; 84439; 84443

== ENCOUNTER 2025-02-05 15:35 | Outpatient (REF) | payer MEDICAID, SELFPAY ==
[2025-02-05 16:19] LABS: TSH 1.18 uIU/mL (0.36-3.74)
== END 2025-02-05 15:36 | disposition home or self-care (01) ==
LOC: NCHCN 15:35
PROVIDERS: PCP Registered Nurse; Visit Provider Family Medicine
DX: E03.9 Hypothyroidism, unspecified (principal)
CPT/HCPCS: 84443